=== PATIENT | female | born 1950 | race Caucasian/White ===

== ENCOUNTER → 2018-07-06 | Outpatient (CLI) | payer MEDICARE ==
[~2018-07-06] MED LIST: ACTOS; ALBU90OI INH; ATEN50; AZIT250 PO; BENADRYL25 MG; DEXA.5; DIAZ2 PO; DULO60 PO; ESCI10; FAMO20 PO; GABA100; GLIP5; HYDACE5 PO; IBUP800; INSU100I6 SC; INSULANPEN; LEVSOD100 PO; LEVSOD50; LISHYD2012; LORA2; LORA2 PO; MECL25 PO; METF500 PO; METFORMIN; Metformin HCl1000 MG; POTCHL20ER PO; PRAV20; PRED20 PO; PROM25 PO; Pravachol40 MG PO; RXLORA1 PO; ST. JOSEPH ASPI81 MG PO; ZESTORETIC 20-121 EA PO
[2018-07-06 17:16] LABS: Creatinine, Urine Random 71.9 mg/dL (27.00-270.00)
[2018-07-06 17:18] LABS: Microalb/Creat Ratio UR, Rand 11.14 mg/g (0.000-30.000); Microalbumin, Random Urine 8.01 mg/L (0.000-20.000)
== END ==
LOC: LAB 11:30 → LAB SHORT 11:30 → EDSTATUS 06-07 11:15 → LAB FUT 06-07 11:15
PROVIDERS: Nurse Practitioner Family
DX: D64.9 Anemia, unspecified (principal); E11.9 Type 2 diabetes mellitus without complications; E78.1 Pure hyperglyceridemia; E03.9 Hypothyroidism, unspecified; E55.9 Vitamin D deficiency, unspecified
CPT/HCPCS: 82043; 82570

== ENCOUNTER 2018-08-29 20:27 | Emergency (ER) | payer MEDICARE ==
[~2018-08-29] VITALS: Ht 160 cm; Wt 77.1 kg
[~2018-08-29 20:27] MED LIST changes: +Bentyl20 MG PO; +CHOL10002 PO; +GLUCOSAMINE; +LEVSOD112 PO; +LO-DOSE ASPIRIN81 MG PO; +Neurontin 300300 MG PO; +OMEPRAZOLE MAGN20 MG PO; +Requip0.5 MG PO; +Zofran4 MG PO
[2018-08-29 20:59] LABS: BASOPHILS ABSOLUTE AUTO 0.05 K/mm3 (0.00-0.23); BASOPHILS PERCENT AUTO 0 % (0-2); EOSINOPHILS ABSOLUTE AUTO 0.11 K/mm3 (0.00-0.68); EOSINOPHILS PERCENT AUTO 1 % (0-6); Hematocrit 36.7 % (33.0-51.0); IMMATURE GRAN ABSOLUTE AUTO 0.04 K/mm3 (0.00-0.10); IMMATURE GRAN PERCENT AUTO 0 % (0-1); LYMPHOCYTES ABSOLUTE AUTO 0.64 K/mm3 (0.84-5.20); LYMPHOCYTES PERCENT AUTO 6 % (21-46); MONOCYTES ABSOLUTE AUTO 0.66 K/mm3 (0.16-1.47); MONOCYTES PERCENT AUTO 6 % (4-13); Mean Corpuscular HGB 25.6 pg (26.0-34.0); Mean Corpuscular Volume 85 fL (80-100); Mean Platelet Volume 10.3 fL (9.1-12.4); NEUTROPHILS ABSOLUTE AUTO 9.72 K/mm3 (1.96-9.15); NEUTROPHILS PERCENT AUTO 87 % (41-73); Platelet Count 411 K/mm3 (150-400); RDW Coefficient Variation 15.9 % (11.7-14.2); RDW Standard Deviation 49.1 fL (35.1-46.3); White Blood Cell Count 11.22 K/mm3 (4.00-11.30)
[2018-08-29 21:25] LABS: Albumin, Blood 3.1 g/dL (3.4-5.0); Albumin/Globulin Ratio 0.6 (0.8-1.8); Bilirubin, Total 3.7 mg/dL (0.1-1.0); Bun/Creatinine Ratio 11.1 (12.0-20.0); Calcium, Blood 9.3 mg/dL (8.5-10.1); Creatinine, Blood 1.08 mg/dL (0.40-1.00); Globulin, Blood 5.1 g/dL (2.2-4.0); Potassium, Blood 3.6 mmol/L (3.5-5.5); Total Protein, Blood 8.2 g/dL (6.4-8.2)
== END 2018-08-30 00:15 | disposition short-term general hospital (02) ==
LOC: ER 20:27
PROVIDERS: Physician Assistant
DX: K80.50 Calculus of bile duct without cholangitis or cholecystitis without obstruction (principal); Z88.0 Allergy status to penicillin; Z88.2 Allergy status to sulfonamides; Z88.5 Allergy status to narcotic agent; Z79.899 Other long term (current) drug therapy; Z79.82 Long term (current) use of aspirin; Z79.84 Long term (current) use of oral hypoglycemic drugs; E11.9 Type 2 diabetes mellitus without complications; F41.9 Anxiety disorder, unspecified; I10 Essential (primary) hypertension
CPT/HCPCS: 36415; 76705; 80053; 83690; 85025; 96374; 96375; 99285-25; J1170; J2405

== ENCOUNTER → 2018-09-09 | Outpatient (CLI) | payer MEDICARE ==
[2018-09-16 13:35] LABS: Stool Occult Bld Immuno 1 Negative (NEGATIVE)
== END ==
LOC: LAB 19:29 → LAB SHORT 19:29
PROVIDERS: Nurse Practitioner Family
DX: Z12.11 Encounter for screening for malignant neoplasm of colon (principal)
CPT/HCPCS: G0328

== ENCOUNTER → 2020-01-04 | Outpatient (CLI) | payer MEDICARE ==
[2020-01-06 14:37] LABS: Stool Occult Bld Immuno 1 Negative (NEGATIVE)
== END ==
LOC: LAB 13:40 → LAB SHORT 13:40
PROVIDERS: Student in an Organized Health Care Education/Training Program
DX: Z12.11 Encounter for screening for malignant neoplasm of colon (principal)
CPT/HCPCS: G0328

== ENCOUNTER → 2020-12-20 | Outpatient (CLI) | payer MEDICARE, OTHER ==
[~2020-12-20] MED LIST changes: +EUTHYROX125 MCG PO; +GLUCOPHAGE1000 M1 PO; +INSULANPEN SC; +K-Dur20 MEQ PO; +LEVEMIR100 UNIT/1 SC; -LEVSOD112 PO; +MAGCHL64ER PO; +PRAVASTATIN SOD40 MG PO; -Requip0.5 MG PO; +Ropinirole HCl0.5 MG PO
[2020-12-20 17:18] LABS: BASOPHILS ABSOLUTE AUTO 0.01 K/mm3 (0.00-0.23); BASOPHILS PERCENT AUTO 0 % (0-2); EOSINOPHILS ABSOLUTE AUTO 0.01 K/mm3 (0.00-0.68); EOSINOPHILS PERCENT AUTO 0 % (0-6); Hematocrit 38.3 % (33.0-51.0); Hemoglobin 12.4 g/dL (11.5-16.0); IMMATURE GRAN ABSOLUTE AUTO 0.01 K/mm3 (0.00-0.10); IMMATURE GRAN PERCENT AUTO 0 % (0-1); LYMPHOCYTES ABSOLUTE AUTO 0.81 K/mm3 (0.84-5.20); LYMPHOCYTES PERCENT AUTO 13 % (21-46); MONOCYTES ABSOLUTE AUTO 0.48 K/mm3 (0.16-1.47); MONOCYTES PERCENT AUTO 8 % (4-13); Mean Corpuscular HGB 27.3 pg (26.0-34.0); Mean Corpuscular HGB Conc 32.4 g/dL (31.5-36.5); Mean Corpuscular Volume 84 fL (80-100); Mean Platelet Volume 10.9 fL (9.1-12.4); NEUTROPHILS PERCENT AUTO 78 % (41-73); Platelet Count 233 K/mm3 (150-400); RDW Coefficient Variation 16.3 % (11.7-14.2); RDW Standard Deviation 50.2 fL (35.1-46.3); Red Blood Cell Count 4.55 M/mm3 (3.80-5.20); White Blood Cell Count 6.12 K/mm3 (4.00-11.30)
[2020-12-20 17:32] LABS: Albumin, Blood 3.1 g/dL (3.4-5.0); Albumin/Globulin Ratio 0.6 (0.8-1.8); Bilirubin, Total 0.6 mg/dL (0.1-1.0); Bun/Creatinine Ratio 15.2 (12.0-20.0); Creatinine, Blood 1.64 mg/dL (0.40-1.00); Globulin, Blood 5.3 g/dL (2.2-4.0); Potassium, Blood 3.6 mmol/L (3.5-5.5); Total Protein, Blood 8.4 g/dL (6.4-8.2)
== END | disposition home or self-care (01) ==
LOC: LAB 17:12 → LAB SHORT 17:12
PROVIDERS: Chiropractor
DX: R19.7 Diarrhea, unspecified (principal)
CPT/HCPCS: 80053; 85025

== ENCOUNTER → 2020-12-20 | Outpatient (CLI) | payer MEDICARE, OTHER | END | disposition home or self-care (01) | LOC: LAB 16:58 → LAB SHORT 16:58 | DX: R82.79 Other abnormal findings on microbiological examination of urine (principal); R19.7 Diarrhea, unspecified | CPT/HCPCS: 80053; 85025; 87086 ==

== ENCOUNTER 2020-12-22 01:02 | Emergency (ER) | payer MEDICARE, OTHER ==
[~2020-12-22] VITALS: Ht 167.6 cm; Wt 93.0 kg
[~2020-12-22 01:02] MED LIST changes: -EUTHYROX125 MCG PO; -GLUCOPHAGE1000 M1 PO; -INSULANPEN SC; -K-Dur20 MEQ PO; -LEVEMIR100 UNIT/1 SC; -MAGCHL64ER PO; -Neurontin 300300 MG PO; -OMEPRAZOLE MAGN20 MG PO; -PRAVASTATIN SOD40 MG PO; -Ropinirole HCl0.5 MG PO
[2020-12-22 01:25] LABS: Calcium, Ionized (POC) 0.98 mmol/L (1.10-1.46); Chloride (POC) 92 mmol/L (98-108); Glucose (ISTAT POC) 270 mg/dL (70-99); Hemoglobin (POC) 13.6 g/dL (12.0-16.0); Sodium (POC) 130 mmol/L (135-148); Total CO2 (POC) 21 mmol/L (21-32)
[2020-12-22 01:35] LABS: BASOPHILS ABSOLUTE AUTO 0.01 K/mm3 (0.00-0.23); BASOPHILS PERCENT AUTO 0 % (0-2); EOSINOPHILS PERCENT AUTO 0 % (0-6); Hemoglobin 12.2 g/dL (11.5-16.0); IMMATURE GRAN ABSOLUTE AUTO 0.02 K/mm3 (0.00-0.10); IMMATURE GRAN PERCENT AUTO 0 % (0-1); LYMPHOCYTES ABSOLUTE AUTO 1.12 K/mm3 (0.84-5.20); LYMPHOCYTES PERCENT AUTO 17 % (21-46); MONOCYTES ABSOLUTE AUTO 0.42 K/mm3 (0.16-1.47); MONOCYTES PERCENT AUTO 6 % (4-13); Mean Corpuscular HGB 26.9 pg (26.0-34.0); Mean Corpuscular HGB Conc 32.1 g/dL (31.5-36.5); Mean Corpuscular Volume 84 fL (80-100); Mean Platelet Volume 11.1 fL (9.1-12.4); NEUTROPHILS ABSOLUTE AUTO 5.18 K/mm3 (1.96-9.15); NEUTROPHILS PERCENT AUTO 77 % (41-73); Platelet Count 238 K/mm3 (150-400); RDW Coefficient Variation 15.8 % (11.7-14.2); RDW Standard Deviation 48.3 fL (35.1-46.3); Red Blood Cell Count 4.53 M/mm3 (3.80-5.20); White Blood Cell Count 6.75 K/mm3 (4.00-11.30)
[2020-12-22 01:47] LABS: Albumin, Blood 2.8 g/dL (3.4-5.0); Albumin/Globulin Ratio 0.6 (0.8-1.8); Bilirubin, Total 0.7 mg/dL (0.1-1.0); Bun/Creatinine Ratio 15.2 (12.0-20.0); Calcium, Blood 8.2 mg/dL (8.5-10.1); Creatinine, Blood 1.05 mg/dL (0.40-1.00); Globulin, Blood 4.9 g/dL (2.2-4.0); Total Protein, Blood 7.7 g/dL (6.4-8.2)
[2020-12-22 01:58] LABS: Magnesium, Blood 0.9 mg/dL (1.6-2.4)
[2020-12-22] MEDS ORDERED: MAGCHL64ER PO (03:04)
[2020-12-22] MEDS ORDERED: K-Dur20 MEQ PO (03:04)
== END 2020-12-22 03:25 | disposition home or self-care (01) ==
LOC: ER 01:02
PROVIDERS: Emergency Medicine
DX: R53.1 Weakness (principal); E87.6 Hypokalemia; E83.42 Hypomagnesemia; E11.9 Type 2 diabetes mellitus without complications; I10 Essential (primary) hypertension; E86.0 Dehydration; U07.1 COVID-19; Z88.0 Allergy status to penicillin; Z88.2 Allergy status to sulfonamides; Z88.5 Allergy status to narcotic agent; Z79.82 Long term (current) use of aspirin; Z79.84 Long term (current) use of oral hypoglycemic drugs; Z79.899 Other long term (current) drug therapy; Z79.890 Hormone replacement therapy
CPT/HCPCS: 80047; 80053; 83690; 83735; 85014; 85025; 93005; 93010; 96365; 99284-25; A9270; J3475

== ENCOUNTER 2020-12-23 14:48 | Emergency (ER) | payer MEDICARE, OTHER ==
[~2020-12-23 14:48] MED LIST changes: +K-Dur20 MEQ PO; +MAGCHL64ER PO
== END 2020-12-23 15:48 | disposition left against medical advice (07) ==
LOC: ER 14:48
DX: Z53.21 Procedure and treatment not carried out due to patient leaving prior to being seen by health care provider (principal)

== ENCOUNTER 2020-12-25 14:26 | Inpatient (IN) | payer MEDICARE ==
[~2020-12-25] VITALS: Ht 160 cm; Wt 77.1 kg
[2020-12-25 15:08] LABS: BASOPHILS ABSOLUTE AUTO 0.02 K/mm3 (0.00-0.23); BASOPHILS PERCENT AUTO 0 % (0-2); EOSINOPHILS ABSOLUTE AUTO 0.01 K/mm3 (0.00-0.68); EOSINOPHILS PERCENT AUTO 0 % (0-6); Hemoglobin 12.5 g/dL (11.5-16.0); Mean Corpuscular HGB 26.9 pg (26.0-34.0); Mean Corpuscular HGB Conc 32.1 g/dL (31.5-36.5); Mean Corpuscular Volume 84 fL (80-100); Mean Platelet Volume 10.6 fL (9.1-12.4); Platelet Count 327 K/mm3 (150-400); RDW Coefficient Variation 15.8 % (11.7-14.2); RDW Standard Deviation 48.3 fL (35.1-46.3); Red Blood Cell Count 4.65 M/mm3 (3.80-5.20); White Blood Cell Count 7.18 K/mm3 (4.00-11.30)
[2020-12-25 15:15] LABS: IMMATURE GRAN ABSOLUTE AUTO 0.03 K/mm3 (0.00-0.10); IMMATURE GRAN PERCENT AUTO 0 % (0-1); LYMPHOCYTES ABSOLUTE AUTO 1.28 K/mm3 (0.84-5.20); LYMPHOCYTES PERCENT AUTO 18 % (21-46); MONOCYTES ABSOLUTE AUTO 0.28 K/mm3 (0.16-1.47); MONOCYTES PERCENT AUTO 4 % (4-13); NEUTROPHILS ABSOLUTE AUTO 5.56 K/mm3 (1.96-9.15); NEUTROPHILS PERCENT AUTO 78 % (41-73)
[2020-12-25 15:31] LABS: Troponin I 0.022 ng/mL (0.000-0.040)
[2020-12-25 15:44] LABS: Albumin, Blood 2.4 g/dL (3.4-5.0); Albumin/Globulin Ratio 0.4 (0.8-1.8); Bilirubin, Total 0.8 mg/dL (0.1-1.0); Bun/Creatinine Ratio 15.9 (12.0-20.0); Calcium, Blood 8.9 mg/dL (8.5-10.1); Creatinine, Blood 1.07 mg/dL (0.40-1.00); Globulin, Blood 5.4 g/dL (2.2-4.0); Potassium, Blood 2.7 mmol/L (3.5-5.5); Total Protein, Blood 7.8 g/dL (6.4-8.2)
[2020-12-25] MEDS ORDERED: DULO60 PO (15:59)
[2020-12-25] MEDS ORDERED: Neurontin 300300 MG PO (16:00)
[2020-12-25] MEDS ORDERED: LEVEMIR100 UNIT/1 SC (16:00)
[2020-12-25] MEDS ORDERED: PRAVASTATIN SOD40 MG PO (16:01)
[2020-12-25] MEDS ORDERED: Ropinirole HCl0.5 MG PO (16:01)
[2020-12-25] MEDS ORDERED: OMEPRAZOLE MAGN20 MG PO (16:02)
[2020-12-25] MEDS ORDERED: ZESTORETIC 20-121 EA PO (16:02)
[2020-12-25] MEDS ORDERED: GLUCOPHAGE1000 M1 PO (16:03)
[2020-12-25] MEDS ORDERED: EUTHYROX125 MCG PO (16:03)
--- NOTE | 2020-12-26 02:59 | NUR ---
PT RESTING QUIETLY. CALL LT IN REACH.
--- NOTE | 2020-12-26 03:49 | NUR ---
SHIFT SUMMARY: ER ADMIT AT SHIFT CHANGE LAST NIGHT. ALERT AND ORIENTED. ON 3L VIA NC. DENIES PAIN AND NAUSEA. CURRENTLY ON 3L VIA NC. STOOL SAMPLE FOR C-DIFF SENT TO LAB, PENDING RESULTS. NO COMPLAINTS. RESTED WELL. WILL CONTINUE TO PROVIDE CARE UNTIL SHIFT REPORT.
[2020-12-26 06:10] LABS: Hematocrit 37.9 % (33.0-51.0); Hemoglobin 11.9 g/dL (11.5-16.0); Mean Corpuscular HGB 26.4 pg (26.0-34.0); Mean Corpuscular HGB Conc 31.4 g/dL (31.5-36.5); Mean Corpuscular Volume 84 fL (80-100); Mean Platelet Volume 10.9 fL (9.1-12.4); Platelet Count 334 K/mm3 (150-400); RDW Standard Deviation 49.4 fL (35.1-46.3); Red Blood Cell Count 4.51 M/mm3 (3.80-5.20); White Blood Cell Count 3.94 K/mm3 (4.00-11.30)
[2020-12-26 06:36] LABS: Bun/Creatinine Ratio 21.5 (12.0-20.0); Calcium, Blood 8.4 mg/dL (8.5-10.1); Creatinine, Blood 0.98 mg/dL (0.40-1.00); Magnesium, Blood 1.3 mg/dL (1.6-2.4); Potassium, Blood 3.1 mmol/L (3.5-5.5); Thyroxine (T4) 12.3 ug/dL (4.8-13.9)
[2020-12-26 06:41] LABS: Adenovirus F 40/41 Not Detected (NOT DETECT); Astrovirus Not Detected (NOT DETECT); Campylobacter Sp Not Detected (NOT DETECT); Cryptosporidium Not Detected (NOT DETECT); Cyclospora Cayetanensis Not Detected (NOT DETECT); E. Coli O157 Not Detected (NOT DETECT); Entamoeba Histolytica Not Detected (NOT DETECT); Enteroaggregative E. coli-EAEC Not Detected (NOT DETECT); Enteropathogenic E. coli-EPEC Not Detected (NOT DETECT); Enterotoxigenic E. coli-ETEC Not Detected (NOT DETECT); Giardia Lamblia Not Detected (NOT DETECT); Norovirus GI/GII Not Detected (NOT DETECT); Plesiomonas Shigelloides Not Detected (NOT DETECT); Rotavirus A Not Detected (NOT DETECT); Salmonella Sp Not Detected (NOT DETECT); Sapovirus Not Detected (NOT DETECT); Shiga Toxin-prod E. coli-STEC Not Detected (NOT DETECT); Shigella/Enteroin E. coli-EIEC Not Detected (NOT DETECT); Vibrio Cholerae Not Detected (NOT DETECT); Vibrio Sp Not Detected (NOT DETECT); Yersinia Enterocolitica Not Detected (NOT DETECT)
--- NOTE | 2020-12-26 18:45 | NUR ---
SHIFT SUMMARY PT AXO PLEASANT AND COOPERATIVE WITH CARE. UP WITH 1 ASSIST AND PREFERS WOMAN NURSE AND EXTRACTOR FILLER FOR MODESTY. CBG ELEVATED, SEE RESULTS AND MEDICATED PER EMAR. VSS THOUGH AT 1814 PT WAS 85 ON 3L. THIS NURSE IN AND INCREASED O2 TO 5L. PT SATS THEN WERE AT 89. 88% ON 6L AT THIS TIME. THIS NURSE CALLED RESPIRATORY CARE FOR FURTHER INTERVENTION. AWAITING ARRIVAL AT THIS TIME. BED IN LOW POSITION, CALL LIGHT WITHIN REACH. IV PATENT AND SALINE LOCKED. NO DIARRHEA THIS SHIFT. ONE VERY SMALL BM THIS SHIFT, BLACK IN COLOR THOUGH PT STATES THAT SHE TAKES CHARCOAL AT HOME.
--- NOTE | 2020-12-27 01:43 | NUR ---
REPORT GIVEN TO KHURRAM HOOVER. PATIENT ALERT AND ORIENTED, ABLE TO MAKE NEEDS KNOWN. SHE WAS ON 9L VIA NC AT START OF SHIFT. PATIENT PLACED ON CONT BIOX AND SHE HAS BEEN SATING IN THE 97-99% WHILE SLEEPING, PATIENTS SUPPLEMENTAL O2 DECREASED TO 8L. MEDICATED WITH APAP FOR COMPLAINTS OF HEAD ACHE, PAIN RESOLVED. BED LOW AND LOCKED, CALL LIGHT WITHIN REACH.
--- NOTE | 2020-12-27 02:00 | NUR ---
RECEIVED REPORT FROM KIKO DAILEY. WILL CONTINUE TO PROVIDE CARE THE REST OF SHIFT. CALL LT IN REACH.
--- NOTE | 2020-12-27 04:22 | NUR ---
SHIFT SUMMARY: PT ON 8L VIA WI, SATS 94-97% PER CONT OXIMETRY. 1PA. ABLE TO STATE NEEDS APPROPRIATELY. USES CALL LT. MEDICATED EARLIER IN SHIFT FOR A HEADACHE. PT RESTED WELL. STOOL SAMPLE WAS C-DIFF NEG. DIARRHEA HAS SLOWED DOWN. NO ACUTE CHANGES. WILL CONTINUE TO PROVIDE CARE UNTIL SHIFT REPORT.
[2020-12-27 05:50] LABS: Hematocrit 35.4 % (33.0-51.0); Hemoglobin 11.3 g/dL (11.5-16.0); Mean Corpuscular HGB 26.9 pg (26.0-34.0); Mean Corpuscular HGB Conc 31.9 g/dL (31.5-36.5); Mean Corpuscular Volume 84 fL (80-100); Mean Platelet Volume 10.5 fL (9.1-12.4); Platelet Count 372 K/mm3 (150-400); RDW Standard Deviation 49.3 fL (35.1-46.3); White Blood Cell Count 7.06 K/mm3 (4.00-11.30)
[2020-12-27 06:15] LABS: Bun/Creatinine Ratio 28.6 (12.0-20.0); Calcium, Blood 8.2 mg/dL (8.5-10.1); Creatinine, Blood 0.94 mg/dL (0.40-1.00); Magnesium, Blood 1.5 mg/dL (1.6-2.4); Potassium, Blood 3.9 mmol/L (3.5-5.5)
--- NOTE | 2020-12-27 17:39 | NUR ---
PT DESATURATES WITH AMBULATION, RECOVERS WELL UNTIL THIS EVENING WHEN HER O2 NEEDS INCREASED WITH AMBULATION FROM BED TO BSC, PT IS NOW ON 12L HIGH FLOW CANNULA TO MAINTAIN SPO2 >88%. PT A/O X3, ANSWERS QUESTIONS SLOWLY, BUT CORRECTLY. PT WITH FLAT AFFECT, DENIES ANY NEEDS T/O THE DAY. DOES HAVE ANXIETY WHEN SHE HAS SPELLS OF COUGHING.
--- NOTE | 2020-12-28 05:13 | NUR ---
SHIFT SUMMARY- PT. A&O, COOPERATIVE WITH CARE. AT START OF SHIFT PT. ON 12L HIGH FLOW NC WITH SATS IN THE LOW 80'S. INCREASED TO 15L, SATS AT 85-87%. PT. PLACED ON 40L AIRVO. REMAINED ON AIRVO T/O THE NIGHT, SATS 95-97%, TOLERATING WELL. NO COMPLAINTS OF PAIN OR DISCOMFORT DURING THE NIGHT. RESTED QUIETLY IN BED, NO APPARENT DISTRESS NOTED. 1PA TO BSC, VSS. CALL LIGHT WITHIN REACH AND SIDE RAILS UPX2. WILL CONT TO MONITOR.
[2020-12-28 06:29] LABS: Hematocrit 35.6 % (33.0-51.0); Hemoglobin 11.2 g/dL (11.5-16.0); Mean Corpuscular HGB 26.9 pg (26.0-34.0); Mean Corpuscular HGB Conc 31.5 g/dL (31.5-36.5); Mean Corpuscular Volume 85 fL (80-100); Mean Platelet Volume 10.8 fL (9.1-12.4); Platelet Count 385 K/mm3 (150-400); RDW Coefficient Variation 15.9 % (11.7-14.2); RDW Standard Deviation 49.7 fL (35.1-46.3); Red Blood Cell Count 4.17 M/mm3 (3.80-5.20); White Blood Cell Count 9.01 K/mm3 (4.00-11.30)
[2020-12-28 06:48] LABS: Bun/Creatinine Ratio 29.4 (12.0-20.0); Calcium, Blood 8.3 mg/dL (8.5-10.1); Creatinine, Blood 0.95 mg/dL (0.40-1.00); Magnesium, Blood 1.6 mg/dL (1.6-2.4); Potassium, Blood 3.7 mmol/L (3.5-5.5)
--- NOTE | 2020-12-28 17:51 | NUR ---
SHIFT SUMMARY PT IS AOX3 BUT SLOW TO RESPOND AT TIMES. PT DENIES PAIN, N/V, SOB. PT IS ON 50 L AIRVO WITH SATS 89-90%. PT IS ONE ASSIST TO BCC. PT APPETITE IS MODERATE. NO PROCEDURES DONE THIS SHIFT. PT HAS NOT HAD VISITORS PER COVID PROTOCOL. ENHANCED ISOLATION PRECAUTIONS MAINTAINED T/O SHIFT. PLAN IS TO MONITOR STATUS AND HOPEFULLY TITRATE O2 DOWN. PT IS IN BED, CALL LIGHT IN REACH, BED IN LOW POSITION.
--- NOTE | 2020-12-29 17:55 | NUR ---
PT IS A/OX3, COOPERATIVE, DUSKY IN COLOR AND ANXIOUS AT TIMES. ON AIRVO T/O THE DAY . O2 SAT'S DROP WITH ANY ACTIVITY. THE PT HAS A POOR APPETITE, ENCOURAGED TO EAT T/O THE DAY. PT DENIES ANY PAIN, HAS OCCASIONAL COUGH, NASAL CONGESTION WITH SPOTTY BLOOD SEEN. CALL LIGHT IN REACH, WILL CONTINUE TO MONITOR AND ASSESS FOR CHANGES
--- NOTE | 2020-12-29 20:45 | NUR ---
PT IS ALERT AND ORIENTED, IN HIGH SEMI FOWLERS POSITION IN BED. PT DENIES ANY HEADACHE, CHEST PAIN, NAUSEA, OR NUMBNESS AND TINGLING. PT REPORTS HER BREATHING/SOB, "BETTER." PT DENIES ANY PAIN OR DISCOMFORT. PT DENIES ANY REQUESTS AT THIS TIME. FLUIDS AT BEDSIDE. BED IN LOW POSITION. CALL LIGHT WITHIN REACH.
[2020-12-30 06:20] LABS: Anion Gap 8 mmol/L (6-16); Blood Urea Nitrogen 27 mg/dL (8-24); Bun/Creatinine Ratio 32.7 (12.0-20.0); CO2, Blood 26 mmol/L (21-32); Calcium, Blood 8.4 mg/dL (8.5-10.1); Chloride, Blood 102 mmol/L (98-108); Creatinine, Blood 0.83 mg/dL (0.40-1.00); Glomerular Filtration Rate >60 (60-); Glucose, Blood 256 mg/dL (70-99); Potassium, Blood 3.5 mmol/L (3.5-5.5); Sodium, Blood 136 mmol/L (136-145)
--- NOTE | 2020-12-30 06:46 | NUR ---
SHIFT SUMMARY - NO ACUTE CHANGES THROUGHOUT THE NIGHT. PT CURRENT AIRVO SETTINGS ARE 50L/70% - CONTINUOUS BIOX ON - SATS HAVE BEEN WNL, EXCEPT WHEN PT HAS DISPLACED THE OXYGEN OUT OF HER NOSE, AND WITH ACTIVITY TO BSC. PT DID DESAT DOWN TO LOW 80'S WITH BSC USE, BUT RECOVERS ONCE BACK INTO BED, AND PT REMINDED TO TAKE DEEP BREATHS THROUGH HER NOSE. PT SLEPT FOR SEVERAL HOURS TONIGHT. CALL LIGHT WITHIN REACH. BED IN LOW POSITION. FLUIDS AT BEDSIDE.
[2020-12-30 08:54] LABS: C-REACTIVE PROTEIN, EXT RANGE 5.99 mg/dL (0.000-0.300)
--- NOTE | 2020-12-30 16:32 | NUR ---
PT IS A/OX3, COOPERATIVE. THE PT IS HIGHLY ANXIOUS MORE TODAY COMPARED TO YESTERDAY. THE PT TAKES OFF HER OXYGEN AT TIMES SAT'S IMMEDIATLY DROP INTO THE 70"S, PT BECOMES CONFUSED AND NEEDS HELP REAPPLYING HER O2, THE PT IS ON AIRVO 50L/70%. THE PT WAS GIVEN FLONASE TODAY FOR NASAL CONGESTION. THE PT WAS GIVEN VISTERIL FOR ANXIETY WHICH SEEMED TO HELP SOME. THE PT WAS UP IN THE CHAIR AT THE BEDSIDE FOR A SHORT TIME TODAY. THE PT HAS A POOR APPETITE, PT WAS ENCOURAGED TO EAT HER MEALS. CALL LIGHT IN REACH. WILL CONTINUE TO MONIOTR AND ASSESS FOR CHANGES
[2020-12-31 05:28] LABS: BASOPHILS ABSOLUTE AUTO 0.01 K/mm3 (0.00-0.23); BASOPHILS PERCENT AUTO 0 % (0-2); EOSINOPHILS PERCENT AUTO 2 % (0-6); Hematocrit 35.3 % (33.0-51.0); Hemoglobin 11.3 g/dL (11.5-16.0); IMMATURE GRAN ABSOLUTE AUTO 0.07 K/mm3 (0.00-0.10); IMMATURE GRAN PERCENT AUTO 1 % (0-1); LYMPHOCYTES ABSOLUTE AUTO 1.32 K/mm3 (0.84-5.20); LYMPHOCYTES PERCENT AUTO 12 % (21-46); MONOCYTES ABSOLUTE AUTO 0.41 K/mm3 (0.16-1.47); MONOCYTES PERCENT AUTO 4 % (4-13); Mean Corpuscular HGB 26.6 pg (26.0-34.0); Mean Corpuscular Volume 83 fL (80-100); Mean Platelet Volume 10.5 fL (9.1-12.4); NEUTROPHILS ABSOLUTE AUTO 8.95 K/mm3 (1.96-9.15); NEUTROPHILS PERCENT AUTO 82 % (41-73); Platelet Count 436 K/mm3 (150-400); RDW Standard Deviation 48.3 fL (35.1-46.3); Red Blood Cell Count 4.25 M/mm3 (3.80-5.20); White Blood Cell Count 10.96 K/mm3 (4.00-11.30)
[2020-12-31 05:53] LABS: Alanine Aminotransfer (ALT/SGP 17 U/L (12-78); Albumin, Blood 2.3 g/dL (3.4-5.0); Albumin/Globulin Ratio 0.5 (0.8-1.8); Alk Phos 83 U/L (50-136); Anion Gap 10 mmol/L (6-16); Aspartate Aminotrans (AST/SGOT 43 U/L (12-37); Bilirubin, Total 0.9 mg/dL (0.1-1.0); Blood Urea Nitrogen 27 mg/dL (8-24); Bun/Creatinine Ratio 31.1 (12.0-20.0); CO2, Blood 21 mmol/L (21-32); Calcium, Blood 9.1 mg/dL (8.5-10.1); Chloride, Blood 107 mmol/L (98-108); Creatinine, Blood 0.87 mg/dL (0.40-1.00); Globulin, Blood 4.7 g/dL (2.2-4.0); Glomerular Filtration Rate >60 (60-); Glucose, Blood 89 mg/dL (70-99); Potassium, Blood 3.9 mmol/L (3.5-5.5); Sodium, Blood 138 mmol/L (136-145)
--- NOTE | 2020-12-31 06:12 | NUR ---
SHIFT SUMMARY AOX1-SELF. CONFUSED. UNABLE TO ANSWER QUESTIONS APPROPRIATELY OR FOLLOW MANY DIRECTIONS WELL. REPETITIVE & STUTTERS c SPEECH & HAS NONSENSICAL RESPONSES. STATES "HURRY, HURRY, HURRY" "YES, YES, YES" TO QUESTIONS. CAN ANSWER YES/NO QUESTIONS APPROPRIATE. OCCASIONAL CLEAR & APPROPRIATE SPEECH "I WANT DRINK". HIGHLY ANXIOUS THIS AM, MEDICATED c VISTERIL PER ORDERS. ON AIRVO, RT INCREASED O2 60L & 88%. PT TAKES AIRVO CANNULA OFF & DESATS TO 60%, WONT STAY IN BED, TRYING TO FREQUENTLY GET OOB, HIGH FALL RISK-INFORMED DR OLIVO & HE ORDERED WRIST RESTRAINTS FOR SAFETY. LUNGS DIM c CRACKLES. DRY NON PRODUCTIVE COUGH. BP ELEVATED THIS AM, HOWEVER PT VERY ANXIOUS-WILL RECHECK. CALL LIGHT & BED ALARM IN PLACE.
--- NOTE | 2020-12-31 11:10 | NUR ---
ANXIOUSNESS/AGITATION PT CONTINUES TO PULL AIRVO OFF WHILE IN WRIST RESTRAINTS AND ZYPREXA GIVEN. PT IS VERY ANXIOUS AND CONFUSED. THIS RN UNABLE TO REDIRECT. PT PLACED IN KEN VEST TO ASSIST WITH NOT SLIDING DOWN IN BED, CAUSING HER AIRVO TO BE PULLED OFF. ORDERS GIVEN BY DR. MCKEON. WILL CONTINUE TO MONITOR FOR SAFETY. CALL LIGHT IN REACH AND BED ALARM ON FOR SAFETY.
--- NOTE | 2020-12-31 13:40 | NUR ---
ROOM TRANSFER PT TRANSFERRED TO ROOM 348 VIA BED SO PT COULD BE ON CAMERA. PT CONTINUES TO PULL AIRVO OFF WITH KEN VEST AND WRIST RESTRAINTS. PT'S OXYGEN LEVEL DROPS LOW 65% WHEN NOT ON AIRVO. PT WILL BE ON CAMERA TO HELP KEEP PT FROM GETTING AIRVO OFF. REPORT GIVEN TO KIKO ELIAS.
--- NOTE | 2020-12-31 18:26 | NUR ---
PT TRANSFERRED FROM FLOOR. SHE CAME WITH PRONOUNCED CONFUSION BUT IS SLOWING CLEARING. SHE KNOWS WHERE SHE LIVES AND WHERE SHE IS AT NOW. SHE HAS A DIFFICULT TIME WITH HER AIR VO CANULA AND OFTEN NEEDS TO BE REMINDED TO NOT PULL AT IT. SHE IS STILL CONFUSED AND AT RISK FOR PULLING ON LINES BUT IS SLOWLY IMPROVING.
[2021-01-01 05:40] LABS: BASOPHILS PERCENT AUTO 0 % (0-2); EOSINOPHILS PERCENT AUTO 0 % (0-6); Hematocrit 32.9 % (33.0-51.0); Hemoglobin 10.3 g/dL (11.5-16.0); IMMATURE GRAN ABSOLUTE AUTO 0.03 K/mm3 (0.00-0.10); IMMATURE GRAN PERCENT AUTO 1 % (0-1); LYMPHOCYTES ABSOLUTE AUTO 0.56 K/mm3 (0.84-5.20); LYMPHOCYTES PERCENT AUTO 12 % (21-46); MONOCYTES PERCENT AUTO 4 % (4-13); Mean Corpuscular HGB 26.4 pg (26.0-34.0); Mean Corpuscular HGB Conc 31.3 g/dL (31.5-36.5); Mean Corpuscular Volume 84 fL (80-100); Mean Platelet Volume 10.8 fL (9.1-12.4); NEUTROPHILS ABSOLUTE AUTO 3.94 K/mm3 (1.96-9.15); NEUTROPHILS PERCENT AUTO 83 % (41-73); Platelet Count 379 K/mm3 (150-400); RDW Coefficient Variation 16.3 % (11.7-14.2); RDW Standard Deviation 49.8 fL (35.1-46.3); White Blood Cell Count 4.73 K/mm3 (4.00-11.30)
--- NOTE | 2021-01-01 05:54 | NUR ---
PT transferred from PCU on airvo for resp support for covid 19 pneumonia. PT on 55l airvo with slight wean from 73 to 70 per RT. Bioxx intact, sats greater than 90%. Flat affect, slept most of shift. Wrist restraints off without attempts to remove medical equipment. took water only with setup & cues declined HS snack.
[2021-01-01 05:56] LABS: Anion Gap 9 mmol/L (6-16); Blood Urea Nitrogen 30 mg/dL (8-24); CO2, Blood 24 mmol/L (21-32); Calcium, Blood 8.7 mg/dL (8.5-10.1); Chloride, Blood 106 mmol/L (98-108); Creatinine, Blood 0.88 mg/dL (0.40-1.00); Glomerular Filtration Rate >60 (60-); Glucose, Blood 324 mg/dL (70-99); Potassium, Blood 4.2 mmol/L (3.5-5.5); Sodium, Blood 139 mmol/L (136-145)
--- NOTE | 2021-01-02 03:53 | NUR ---
SHIFT SUMMARY A/O 2-3, FORGETFUL AND IMPULSIVE AT TIMES. KEN IN PLACE FOR SAFETY. BEDREST WITH USE OF BEDPAN. CURRENTLY ON AIRVO 55L 60% FIO2. VSS, NO ACUTE CHANGES AT THIS TIME. BED IN LOWEST POSITION WITH CALL LIGHT IN REACH. WILL CONTINUE TO MONITOR AND REPORT TO ONCOMING RN.
--- NOTE | 2021-01-02 12:50 | NUR ---
BLOOD GLUCOSE [address] STAHL OF ABOVE FINDINGS. T.O. TO CHANGE MED CS TO HIGH CS AND ADMINISTER FIRST DOSE OF HIGH CS NOW. ORDER UPDATED.
--- NOTE | 2021-01-02 16:54 | NUR ---
Shift Summary A/Ox3, pleasant and cooperative with care. Restraints have been d/c'd this shift d/t improved mentation. Follows directions well. Assist with proning and side lying positions. Currently on AirVo 55L 60% FiO2. Had to increase oxygen supplementation today, but patient now back to same as start of shift. C/O weakness. Incontinent/continent. Calls appropriately for needs. Appetite is good. Blood sugars have been high, Dr. Pina is aware. Sats maintaining > 90% with current oxygenation. Nonproductive dry cough.
[2021-01-03 04:54] LABS: BASOPHILS ABSOLUTE AUTO 0.01 K/mm3 (0.00-0.23); BASOPHILS PERCENT AUTO 0 % (0-2); EOSINOPHILS ABSOLUTE AUTO 0.02 K/mm3 (0.00-0.68); EOSINOPHILS PERCENT AUTO 0 % (0-6); Hematocrit 35.8 % (33.0-51.0); Hemoglobin 11.1 g/dL (11.5-16.0); IMMATURE GRAN ABSOLUTE AUTO 0.02 K/mm3 (0.00-0.10); IMMATURE GRAN PERCENT AUTO 0 % (0-1); LYMPHOCYTES ABSOLUTE AUTO 0.75 K/mm3 (0.84-5.20); LYMPHOCYTES PERCENT AUTO 9 % (21-46); MONOCYTES PERCENT AUTO 3 % (4-13); Mean Corpuscular HGB 26.4 pg (26.0-34.0); Mean Corpuscular Volume 85 fL (80-100); Mean Platelet Volume 10.4 fL (9.1-12.4); NEUTROPHILS ABSOLUTE AUTO 7.71 K/mm3 (1.96-9.15); NEUTROPHILS PERCENT AUTO 88 % (41-73); Platelet Count 427 K/mm3 (150-400); RDW Coefficient Variation 16.1 % (11.7-14.2); RDW Standard Deviation 50.6 fL (35.1-46.3); White Blood Cell Count 8.81 K/mm3 (4.00-11.30)
[2021-01-03 05:08] LABS: International Normalized Ratio 1.04; Prothrombin Time Results 11.2 Sec (9.7-11.5)
--- NOTE | 2021-01-03 05:13 | NUR ---
SHIFT SUMMARY A/OX3, PLEASANT AND COOPERATIVE WITH CARE. CALLS APPROPRIATELY. CURRENTLY ON AIRVO 55L WITH FIO2 OF 62% LUNGS DIM T/O. CONT. BIOX IN PLACE VIA BLUETOOTH WITH SATS GREATER THAN 92. DENIES PAIN, VSS NO ACUTE CHANGES AT THIS TIME. BED IN LOWEST POSITION WITH CALL LIGHT IN REACH. WILL CONTINUE TO MONITOR AND REPORT TO ONCOMING RN.
[2021-01-03 05:44] LABS: C-REACTIVE PROTEIN, EXT RANGE 7.53 mg/dL (0.000-0.300); Magnesium, Blood 1.8 mg/dL (1.6-2.4)
[2021-01-03 05:45] LABS: Albumin, Blood 2.1 g/dL (3.4-5.0); Albumin/Globulin Ratio 0.4 (0.8-1.8); Bilirubin, Total 0.7 mg/dL (0.1-1.0); Bun/Creatinine Ratio 35.9 (12.0-20.0); Calcium, Blood 9.1 mg/dL (8.5-10.1); Creatinine, Blood 1.03 mg/dL (0.40-1.00); Globulin, Blood 4.8 g/dL (2.2-4.0); Potassium, Blood 4.5 mmol/L (3.5-5.5); Total Protein, Blood 6.9 g/dL (6.4-8.2)
--- NOTE | 2021-01-03 14:26 | NUR ---
TESSALON AND EYE DROPS RECEIVED V.O. FROM DR. STAHL D/T PATIENT C/O COUGH AND DRY EYES. TREAT WITH TESSALON FRANCISCO 200 TID AND ARTIFICIAL TEARS 1-2 DROPS QID.
--- NOTE | 2021-01-03 18:17 | NUR ---
Shift Summary AOx3, continues with nonproductive cough. Meds ordered. Airvo increased to 55L and 85% FiO2 with sats between 89-94%. Cooperative with turning onto sides. Patient desaturated while sitting in chair having lunch, dropped to mid 50's and was difficult to keep up. Notified Dr. Pina and RT Sylvia. Assisted patient back to bed in side lying position, increased O2 from 60% FiO2 to 90%. Patient maintained sats above 95% after all interventions so titrated down to 85%. Pleasant. Appetite is good. C/O dry eyes, med also ordered.
--- NOTE | 2021-01-04 04:17 | NUR ---
SHIFT SUMMARY PATIENT HAD NO ACUTE CHANGES OBSERVED. AXOX 3 AND ONE ASSIST TO CHAIR. TAKES MEDICATION WHOLE WITH WATER. CBG 297. PIV REMAINS INTACT. ON AIRVO 55L STATING 98%. VSS/AFEBRILE. REPORTED GIRALDO AND TYLENOL 500 MG GIVEN. VISTARIL 25 MG GIVEN FOR ANXIETY. DROPLET PRECAUTIONS COVID-19. CALL LIGHT IN REACH. BED IN LOWEST POSITION. WILL CONTINUE TO MONITOR UNTIL DAY SHIFT NURSE ASSUMES CARE.
[2021-01-04 06:04] LABS: BASOPHILS ABSOLUTE AUTO 0.02 K/mm3 (0.00-0.23); BASOPHILS PERCENT AUTO 0 % (0-2); EOSINOPHILS ABSOLUTE AUTO 0.02 K/mm3 (0.00-0.68); EOSINOPHILS PERCENT AUTO 0 % (0-6); Hematocrit 34.7 % (33.0-51.0); Hemoglobin 10.9 g/dL (11.5-16.0); IMMATURE GRAN ABSOLUTE AUTO 0.03 K/mm3 (0.00-0.10); IMMATURE GRAN PERCENT AUTO 0 % (0-1); LYMPHOCYTES ABSOLUTE AUTO 0.86 K/mm3 (0.84-5.20); LYMPHOCYTES PERCENT AUTO 11 % (21-46); MONOCYTES ABSOLUTE AUTO 0.41 K/mm3 (0.16-1.47); MONOCYTES PERCENT AUTO 5 % (4-13); Mean Corpuscular HGB 26.6 pg (26.0-34.0); Mean Corpuscular HGB Conc 31.4 g/dL (31.5-36.5); Mean Corpuscular Volume 85 fL (80-100); Mean Platelet Volume 10.6 fL (9.1-12.4); NEUTROPHILS ABSOLUTE AUTO 6.42 K/mm3 (1.96-9.15); NEUTROPHILS PERCENT AUTO 83 % (41-73); Platelet Count 375 K/mm3 (150-400); RDW Coefficient Variation 15.9 % (11.7-14.2); RDW Standard Deviation 49.5 fL (35.1-46.3); White Blood Cell Count 7.76 K/mm3 (4.00-11.30)
[2021-01-04 06:17] LABS: International Normalized Ratio 1.05; Prothrombin Time Results 11.3 Sec (9.7-11.5)
[2021-01-04 06:37] LABS: Bun/Creatinine Ratio 35.1 (12.0-20.0); C-REACTIVE PROTEIN, EXT RANGE 5.93 mg/dL (0.000-0.300); Calcium, Blood 8.4 mg/dL (8.5-10.1); Magnesium, Blood 1.6 mg/dL (1.6-2.4); Potassium, Blood 4.6 mmol/L (3.5-5.5)
--- NOTE | 2021-01-04 20:01 | NUR ---
A+O, but easily confused and sob, air vo, medicated as prescribed, 02 level stayed above 90 majority of shift, bsr shared with noc nurse and pt, call light in reach, saline locked
--- NOTE | 2021-01-05 04:18 | NUR ---
SHIFT SUMMARY PATIENT HAD NO ACUTE CHANGES OBSERVED. AXOX 3 AND ONE ASSIST TO BSC. ON AIRVO 50L. PIV REMAINS INTACT. CBG 281. REPORTED GIRALDO X ONE AND TYLENOL GIVEN PER EMAR. TAKES MEDS WHOLE WITH WATER. DENIES SOB AND N/V. CALL LIGHT IN REACH. BED IN LOWEST POSITION. WILL CONTINUE TO MONITOR UNTIL DAY SHIFT NURSE ASSUMES CARE.
[2021-01-05 06:07] LABS: BASOPHILS ABSOLUTE AUTO 0.02 K/mm3 (0.00-0.23); BASOPHILS PERCENT AUTO 0 % (0-2); EOSINOPHILS ABSOLUTE AUTO 0.02 K/mm3 (0.00-0.68); EOSINOPHILS PERCENT AUTO 0 % (0-6); Hematocrit 38.5 % (33.0-51.0); Hemoglobin 11.8 g/dL (11.5-16.0); IMMATURE GRAN ABSOLUTE AUTO 0.05 K/mm3 (0.00-0.10); IMMATURE GRAN PERCENT AUTO 1 % (0-1); LYMPHOCYTES ABSOLUTE AUTO 0.96 K/mm3 (0.84-5.20); LYMPHOCYTES PERCENT AUTO 9 % (21-46); MONOCYTES ABSOLUTE AUTO 0.51 K/mm3 (0.16-1.47); MONOCYTES PERCENT AUTO 5 % (4-13); Mean Corpuscular HGB 26.7 pg (26.0-34.0); Mean Corpuscular HGB Conc 30.6 g/dL (31.5-36.5); Mean Corpuscular Volume 87 fL (80-100); Mean Platelet Volume 11.1 fL (9.1-12.4); NEUTROPHILS ABSOLUTE AUTO 8.69 K/mm3 (1.96-9.15); NEUTROPHILS PERCENT AUTO 85 % (41-73); Platelet Count 359 K/mm3 (150-400); RDW Coefficient Variation 15.8 % (11.7-14.2); RDW Standard Deviation 50.1 fL (35.1-46.3); Red Blood Cell Count 4.42 M/mm3 (3.80-5.20); White Blood Cell Count 10.25 K/mm3 (4.00-11.30)
[2021-01-05 06:21] LABS: International Normalized Ratio 1.04; Prothrombin Time Results 11.2 Sec (9.7-11.5)
[2021-01-05 06:34] LABS: Anion Gap 6 mmol/L (6-16); Blood Urea Nitrogen 35 mg/dL (8-24); Bun/Creatinine Ratio 39.5 (12.0-20.0); CO2, Blood 25 mmol/L (21-32); Calcium, Blood 9.9 mg/dL (8.5-10.1); Chloride, Blood 106 mmol/L (98-108); Creatinine, Blood 0.89 mg/dL (0.40-1.00); Glomerular Filtration Rate >60 (60-); Glucose, Blood 235 mg/dL (70-99); Potassium, Blood 4.7 mmol/L (3.5-5.5); Sodium, Blood 137 mmol/L (136-145)
--- NOTE | 2021-01-06 04:13 | NUR ---
BP 162/54 AND IV APRESOLINE 10 MG GIVEN FOR SBP >150. BP 143/47 ON RECHECK. CALL LIGHT IN REACH.
--- NOTE | 2021-01-06 04:17 | NUR ---
SHIFT SUMMARY PATIENT HYPERTENSIVE THIS SHIFT.IV APRESOLINE 10 MG GIVEN PER EMAR (SEE NOTE). RECHECK 143/47. AXOX 3 AND ONE ASSIST TO BSC. NON PRODUCTIVE COUGH. RT IN AND REPORTS AIRVO DOWN TO 40 L FROM 50L. REPORTED GIRALDO X ONE AND TYLENOL GIVEN PER EMAR. VISTARIL 25 MG GIVEN FOR ANXIETY. AFEBRILE. PIV REMAINS INTACT. CALL LIGHT IN REACH. BED IN LOWEST POSITION. WILL CONTINUE TO MONITOR UNTIL DAY SHIFT NURSE ASSUMES CARE.
[2021-01-06 05:28] LABS: BASOPHILS ABSOLUTE AUTO 0.01 K/mm3 (0.00-0.23); BASOPHILS PERCENT AUTO 0 % (0-2); EOSINOPHILS PERCENT AUTO 0 % (0-6); Hematocrit 40.6 % (33.0-51.0); Hemoglobin 12.8 g/dL (11.5-16.0); IMMATURE GRAN ABSOLUTE AUTO 0.07 K/mm3 (0.00-0.10); IMMATURE GRAN PERCENT AUTO 1 % (0-1); LYMPHOCYTES PERCENT AUTO 5 % (21-46); MONOCYTES ABSOLUTE AUTO 0.08 K/mm3 (0.16-1.47); MONOCYTES PERCENT AUTO 1 % (4-13); Mean Corpuscular HGB 26.6 pg (26.0-34.0); Mean Corpuscular HGB Conc 31.5 g/dL (31.5-36.5); Mean Corpuscular Volume 84 fL (80-100); Mean Platelet Volume 10.7 fL (9.1-12.4); NEUTROPHILS ABSOLUTE AUTO 11.87 K/mm3 (1.96-9.15); NEUTROPHILS PERCENT AUTO 94 % (41-73); Platelet Count 415 K/mm3 (150-400); RDW Coefficient Variation 15.6 % (11.7-14.2); RDW Standard Deviation 48.2 fL (35.1-46.3); Red Blood Cell Count 4.81 M/mm3 (3.80-5.20); White Blood Cell Count 12.63 K/mm3 (4.00-11.30)
[2021-01-06 05:51] LABS: Anion Gap 10 mmol/L (6-16); Blood Urea Nitrogen 39 mg/dL (8-24); Bun/Creatinine Ratio 43.1 (12.0-20.0); CO2, Blood 23 mmol/L (21-32); Calcium, Blood 9.9 mg/dL (8.5-10.1); Chloride, Blood 101 mmol/L (98-108); Creatinine, Blood 0.91 mg/dL (0.40-1.00); Glomerular Filtration Rate >60 (60-); Glucose, Blood 384 mg/dL (70-99); Potassium, Blood 4.3 mmol/L (3.5-5.5); Sodium, Blood 134 mmol/L (136-145)
--- NOTE | 2021-01-06 10:00 | NUR ---
RT notified Patient desaturating after sitting in chair for breakfast. Reports anxious, sats down to 60's. Placed patient back into bed into R side lying position. Ativan 1mg IV given per EMAR. Airvo settings 40L and 92% FiO2. Sats maintaining high 60's to high 80's. RT Tory notified of situation. Tory will be up soon per state.
--- NOTE | 2021-01-06 12:30 | NUR ---
PHYSICIAN CONTACT RE BLOOD GLUCOSE BLOOD GLUCOSE FOR AM AND NOON WERE BOTH > 350. DR. STAHL NOTIFIED, RECEIVED ORDER TO GIVE ADDITIONAL 10 UNITS OF HUMALOG TO MAKE A TOTAL OF 25 UNITS FOR LUNCH. VERIFIED INSULIN WITH KIKO ALVES.
--- NOTE | 2021-01-06 18:16 | NUR ---
PT REMAINED ON BEDREST T/O DAY, FREQUENT DESATS INTO 80-70'S W/ ACTIVITY/TALKING. RT IN TO EVAL PT AND INCREASED AIRVO TO 45L AND FIO2@90%. NO OTHER ACUTE CHANGES T/O DAY.
[2021-01-07 05:24] LABS: BASOPHILS ABSOLUTE AUTO 0.01 K/mm3 (0.00-0.23); BASOPHILS PERCENT AUTO 0 % (0-2); EOSINOPHILS PERCENT AUTO 0 % (0-6); Hematocrit 40.6 % (33.0-51.0); Hemoglobin 12.9 g/dL (11.5-16.0); IMMATURE GRAN ABSOLUTE AUTO 0.05 K/mm3 (0.00-0.10); IMMATURE GRAN PERCENT AUTO 0 % (0-1); LYMPHOCYTES ABSOLUTE AUTO 0.55 K/mm3 (0.84-5.20); LYMPHOCYTES PERCENT AUTO 4 % (21-46); MONOCYTES ABSOLUTE AUTO 0.23 K/mm3 (0.16-1.47); MONOCYTES PERCENT AUTO 2 % (4-13); Mean Corpuscular HGB 26.9 pg (26.0-34.0); Mean Corpuscular HGB Conc 31.8 g/dL (31.5-36.5); Mean Corpuscular Volume 85 fL (80-100); Mean Platelet Volume 11.2 fL (9.1-12.4); NEUTROPHILS PERCENT AUTO 93 % (41-73); Platelet Count 399 K/mm3 (150-400); RDW Coefficient Variation 15.8 % (11.7-14.2); RDW Standard Deviation 48.4 fL (35.1-46.3); White Blood Cell Count 12.44 K/mm3 (4.00-11.30)
[2021-01-07 05:38] LABS: International Normalized Ratio 0.98; Prothrombin Time Results 10.6 Sec (9.7-11.5)
[2021-01-07 05:57] LABS: Bun/Creatinine Ratio 46.6 (12.0-20.0); C-REACTIVE PROTEIN, EXT RANGE 1.13 mg/dL (0.000-0.300); Calcium, Blood 9.8 mg/dL (8.5-10.1); Creatinine, Blood 0.97 mg/dL (0.40-1.00); Magnesium, Blood 1.7 mg/dL (1.6-2.4); Potassium, Blood 4.2 mmol/L (3.5-5.5)
--- NOTE | 2021-01-07 06:27 | NUR ---
SHIFT SUMMARY- ON ARIVO 45L @95% WITH PERSISTENT COUGH. SLEPT ON/OFF DURING THE NIGHT, NO APPARENT DISTRESS NOTED. PT. DESATS TO 70'S W/ACTIVITY. ENCOURAGED PRONE POSITION. WILL CONT TO MONITOR.
--- NOTE | 2021-01-07 17:13 | NUR ---
Shift Summary A/Ox3, pleasant and cooperative. Worked in the bed with PT. Sats maintained between 92-95% at rest Airvo 45L 95% FiO2. When patient sits in chair or starts talking on the phone, patient desats 70-80's. More alert today and not pulling off Airvo as she did yesterday. No other acute changes.
[2021-01-08 05:00] LABS: BASOPHILS ABSOLUTE AUTO 0.01 K/mm3 (0.00-0.23); BASOPHILS PERCENT AUTO 0 % (0-2); EOSINOPHILS PERCENT AUTO 0 % (0-6); Hematocrit 36.3 % (33.0-51.0); Hemoglobin 11.4 g/dL (11.5-16.0); IMMATURE GRAN ABSOLUTE AUTO 0.13 K/mm3 (0.00-0.10); IMMATURE GRAN PERCENT AUTO 1 % (0-1); LYMPHOCYTES ABSOLUTE AUTO 0.39 K/mm3 (0.84-5.20); LYMPHOCYTES PERCENT AUTO 3 % (21-46); MONOCYTES PERCENT AUTO 3 % (4-13); Mean Corpuscular HGB 26.8 pg (26.0-34.0); Mean Corpuscular HGB Conc 31.4 g/dL (31.5-36.5); Mean Corpuscular Volume 85 fL (80-100); Mean Platelet Volume 11.1 fL (9.1-12.4); NEUTROPHILS ABSOLUTE AUTO 11.01 K/mm3 (1.96-9.15); NEUTROPHILS PERCENT AUTO 93 % (41-73); Platelet Count 305 K/mm3 (150-400); Red Blood Cell Count 4.26 M/mm3 (3.80-5.20); White Blood Cell Count 11.84 K/mm3 (4.00-11.30)
[2021-01-08 05:14] LABS: International Normalized Ratio 0.98; Prothrombin Time Results 10.6 Sec (9.7-11.5)
[2021-01-08 05:30] LABS: C-REACTIVE PROTEIN, EXT RANGE 0.561 mg/dL (0.000-0.300); Calcium, Blood 9.1 mg/dL (8.5-10.1); Creatinine, Blood 0.98 mg/dL (0.40-1.00); Magnesium, Blood 1.8 mg/dL (1.6-2.4); Potassium, Blood 4.2 mmol/L (3.5-5.5)
--- NOTE | 2021-01-08 06:58 | NUR ---
SHIFT SUMMARY PT IS A 70 Y/O FEMALE, ADMITTED FOR ACUTE HYPOXEMIC RESPIRATORY FAILURE R/T COVID. CURRENTLY ON 45L @ 75% ON AIRVO, SATTING 90-92%, DYSPNEIC WITH EXERTION. VITAL SIGNS OTHERWISE STABLE. SHE WAS MEDICATED ONCE FOR ANXIETY WITH PRN HYDROXYZINE. NO C/O ACUTE PAIN OR NAUSEA. NO ACUTE CHANGES IN PT CONDITION NOTED DURING THE NIGHT. WILL CONTINUE TO MONITOR AND TREAT PER EMAR UNTIL HAND OFF TO DAY SHIFT RN.
--- NOTE | 2021-01-08 10:10 | NUR ---
PT TRANSFERRED FROM BED TO CHAIR FOR BREAKFAST. PRIOR TO THIS, O2 SAT WAS 90% ON AIRVO 45 L/75% O2. AFTER MOVEMENT, SATURATION DECREASED TO 64%, BREATHING SHALLOW, BUS ASSISTANT COUGH. ALLOWED PT TIME TO RECOVER, BUT O2 SAT NEVER WENT ABOVE 75%. CALLED Sheri ARCHER RT TO COME EVALUATE PATIENT. AIRVO SETTINGS CHANGED TO HIGHEST SETTING, YET O2 SAT NEVER RECOVERED ABOVE 82%. THIS AUTHOR REPORTED THIS TO DR. STAHL AT 0835, BIPAP ORDERED. PT ASSISTED TO PRONE POSITION IN BED, WHICH CAUSED SAT TO DROP TO 54% BRIEFLY. AT 0940, PLACED ON 100% O2 VIA BIPAP USING AIRVO CANNULA WITH O2 SAT 90-92%. LABS DRAWN. CALLED PT'S LAURA TO NOTIFY HIM OF PT'S STATUS AND REASON FOR TRANSFER. GAVE TELEPHONE REPORT TO Vivienne TIJERINA RN.
[2021-01-08 15:49] LABS: BASOPHILS ABSOLUTE AUTO 0.02 K/mm3 (0.00-0.23); BASOPHILS PERCENT AUTO 0 % (0-2); EOSINOPHILS PERCENT AUTO 0 % (0-6); Hematocrit 37.3 % (33.0-51.0); IMMATURE GRAN ABSOLUTE AUTO 0.13 K/mm3 (0.00-0.10); IMMATURE GRAN PERCENT AUTO 1 % (0-1); LYMPHOCYTES ABSOLUTE AUTO 0.47 K/mm3 (0.84-5.20); LYMPHOCYTES PERCENT AUTO 3 % (21-46); MONOCYTES ABSOLUTE AUTO 0.72 K/mm3 (0.16-1.47); MONOCYTES PERCENT AUTO 5 % (4-13); Mean Corpuscular HGB 27.1 pg (26.0-34.0); Mean Corpuscular HGB Conc 32.2 g/dL (31.5-36.5); Mean Corpuscular Volume 84 fL (80-100); Mean Platelet Volume 11.1 fL (9.1-12.4); NEUTROPHILS ABSOLUTE AUTO 14.33 K/mm3 (1.96-9.15); NEUTROPHILS PERCENT AUTO 92 % (41-73); Platelet Count 334 K/mm3 (150-400); RDW Standard Deviation 49.1 fL (35.1-46.3); Red Blood Cell Count 4.43 M/mm3 (3.80-5.20); White Blood Cell Count 15.67 K/mm3 (4.00-11.30)
[2021-01-08 16:10] LABS: Albumin, Blood 2.5 g/dL (3.4-5.0); Albumin/Globulin Ratio 0.6 (0.8-1.8); Bilirubin, Total 0.4 mg/dL (0.1-1.0); Bun/Creatinine Ratio 42.1 (12.0-20.0); Calcium, Blood 8.9 mg/dL (8.5-10.1); Globulin, Blood 4.4 g/dL (2.2-4.0); Potassium, Blood 4.1 mmol/L (3.5-5.5); Total Protein, Blood 6.9 g/dL (6.4-8.2)
--- NOTE | 2021-01-08 18:06 | NUR ---
PT WAS TRANSFERED FROM MEDICAL FLOOR THIS AFTERNOON WHEN SHE WAS UNABLE TO QUICKLY RECOVER HER SPO2 AFTER GETTING UP TO CHAIR. PT HAS BEEN ALERT AND ORIENTED BUT IS QUITE CONFUSED AT TIMES, PT CALLS STAFF IN ROOM FOR ATTENDS CHANGE THEN STS "NO I DIDN'T CALL YOU" THEN WILL ASK "DID I CALL AND SAY THAT?". PT'S ATTENDS CHANGED AT THE END OF THE SHIFT. PT CALLS STAFF IN THE ROOM TO ASK ABOUT NURSE TO PT RATIOS AND ATTEMPTS TO COLLECT STAFF'S LAST NAME AND WHERE THEY LIVE. PT DOES REMOVE HER AIRVO TWICE, PT IS THOROUGHLY EDUCATED THAT CONTINUING TO REMOVE THE AIRVO CAN RESULT IN HIGHER LEVELS OF RESPIRATORY SUPPORT, PT EXPRESSED UNDERSTANDING OF TEACHING AND STOPPED REMOVING ARIVO.
[2021-01-09 04:38] LABS: BASOPHILS ABSOLUTE AUTO 0.01 K/mm3 (0.00-0.23); BASOPHILS PERCENT AUTO 0 % (0-2); EOSINOPHILS PERCENT AUTO 0 % (0-6); Hematocrit 37.9 % (33.0-51.0); IMMATURE GRAN ABSOLUTE AUTO 0.14 K/mm3 (0.00-0.10); IMMATURE GRAN PERCENT AUTO 1 % (0-1); LYMPHOCYTES ABSOLUTE AUTO 0.38 K/mm3 (0.84-5.20); LYMPHOCYTES PERCENT AUTO 3 % (21-46); MONOCYTES ABSOLUTE AUTO 0.33 K/mm3 (0.16-1.47); MONOCYTES PERCENT AUTO 3 % (4-13); Mean Corpuscular HGB 26.8 pg (26.0-34.0); Mean Corpuscular HGB Conc 31.7 g/dL (31.5-36.5); Mean Corpuscular Volume 85 fL (80-100); Mean Platelet Volume 10.9 fL (9.1-12.4); NEUTROPHILS ABSOLUTE AUTO 11.46 K/mm3 (1.96-9.15); NEUTROPHILS PERCENT AUTO 93 % (41-73); Platelet Count 304 K/mm3 (150-400); RDW Coefficient Variation 15.9 % (11.7-14.2); RDW Standard Deviation 49.1 fL (35.1-46.3); Red Blood Cell Count 4.47 M/mm3 (3.80-5.20); White Blood Cell Count 12.32 K/mm3 (4.00-11.30)
[2021-01-09 04:53] LABS: Anion Gap 8 mmol/L (6-16); Blood Urea Nitrogen 40 mg/dL (8-24); Bun/Creatinine Ratio 45.4 (12.0-20.0); C-REACTIVE PROTEIN, EXT RANGE 0.442 mg/dL (0.000-0.300); CO2, Blood 23 mmol/L (21-32); Chloride, Blood 108 mmol/L (98-108); Creatinine, Blood 0.88 mg/dL (0.40-1.00); Glomerular Filtration Rate >60 (60-); Glucose, Blood 103 mg/dL (70-99); Magnesium, Blood 1.6 mg/dL (1.6-2.4); Potassium, Blood 3.9 mmol/L (3.5-5.5); Sodium, Blood 139 mmol/L (136-145)
[2021-01-09 05:13] LABS: International Normalized Ratio 0.99; Prothrombin Time Results 10.7 Sec (9.7-11.5)
--- NOTE | 2021-01-09 06:21 | NUR ---
SHIFT SUMMARY PATIENT A&OX4, FORGETFUL WITH GEN WEAKNESS. ON AIRVO 55L, 90%FIO2 SATING MID 90'S ALL SHIFT. DRY COUGH INFREQUENT. VSS. SR WITH A 1 DEGREE HB ON THE MONITOR. TOLERATING ADA DIET. INCONTINENT AT TIMES WITH CLEAN ATTENDS IN PLACE. TURNS SELF WELL IN BED. FALL PRECUATIONS IN PLACE PATIENT DOES NOT KNOW LIMITS.ATTENTION SEEKING BEHAVIOR AT TIMES BUT COMPLIANT WITH CARE. WILL CONTINUE TO MONITOR UNTIL REPORT GIVEN TO DAYSHIFT RN.
--- NOTE | 2021-01-09 13:56 | NUR ---
PT HAS BEEN SITTING UP IN BED MOST OF THE MORNING, PT NOW LYING ON L SIDE. PT VERBALIZES UNDERSTANDING OF THE IMPORTANCE OF CHANGING POSITIONS EVERY FEW HOURS. CALL LIGHT IN REACH.
--- NOTE | 2021-01-09 17:05 | NUR ---
PATIENT BLOOD PRESSURE ELEVEATED GREATER THAN 170 ON MULTIPLE READINGS, HYDRALAZINE GIVEN, FULL 20 MG OVER A 45- 50 MINUTE PERIOD, WHERE IN THE FIRST 25 MINUTES WAS THE FIRST 10 MG AND THE NEXT AMOUNT OF TIME GAVE ANOTHER 10MG, BLOOD PRESSURE LESS THAN 150 AND PATIENT ENDORSES SHE NO LONGER HAD A HEADACHE. WILL CONTINUE TO MONITOR NEEDED.
--- NOTE | 2021-01-09 18:48 | NUR ---
ROOM SERVICE BELLHOP REPORTED THE PATIENT FEELING NERVOUSNESS, KADY IN AND DID A SET OF VITALS, ADMINISTERED HER GABAPENTIN, AND REPOSITIONED THE PATIENT. VITALS HAD NOTHING TO NOTE, HYDRALAZINE STILL HOLD BP UNDER 150, BREATHING EXERCISES TAUGHT. TALK THERAPY. PATIENT MORE CALM WILL TELL PATIENTS NURSE TO THEN TELL ONCOMING SHIFT. RANJEET VARGAS RN HAD PHARMACY SEND DOWN VISTARIL.
--- NOTE | 2021-01-10 04:41 | NUR ---
SHIFT SUMMARY AAOX4/ANXIOUS AT TIMES. PT DENIES DISCOMFORT/NAUSEA T/O NIGHT. LUNG SOUND COARSE AND DIMINISHED T/O, HUMIDIFIED HIGH FLOW O2 DOWN TO 50L AT 80% FIO2 THIS AM, PT VERY EASILY SOB WITH MINIMAL EXERTION. CONTINUE TO ENCOURAGE PT TO TAKE SLOW DEEP BREATHS TOLERATED. INCONTINENT IN ATTENDS AT TIMES, CALLS SOMETIMES FOR BEDPAN USE. CONTINUE TO WEAN O2 SETTINGS TOLERATED. PT CURRENTY RESTING IN BED WITH CALL LIGHT IN REACH.
[2021-01-10 04:47] LABS: BASOPHILS ABSOLUTE AUTO 0.01 K/mm3 (0.00-0.23); BASOPHILS PERCENT AUTO 0 % (0-2); EOSINOPHILS PERCENT AUTO 0 % (0-6); Hemoglobin 11.8 g/dL (11.5-16.0); IMMATURE GRAN PERCENT AUTO 1 % (0-1); LYMPHOCYTES ABSOLUTE AUTO 0.53 K/mm3 (0.84-5.20); LYMPHOCYTES PERCENT AUTO 5 % (21-46); MONOCYTES ABSOLUTE AUTO 0.37 K/mm3 (0.16-1.47); MONOCYTES PERCENT AUTO 3 % (4-13); Mean Corpuscular HGB 26.9 pg (26.0-34.0); Mean Corpuscular HGB Conc 31.9 g/dL (31.5-36.5); Mean Corpuscular Volume 85 fL (80-100); NEUTROPHILS ABSOLUTE AUTO 10.23 K/mm3 (1.96-9.15); NEUTROPHILS PERCENT AUTO 91 % (41-73); Platelet Count 272 K/mm3 (150-400); RDW Coefficient Variation 16.1 % (11.7-14.2); RDW Standard Deviation 49.7 fL (35.1-46.3); Red Blood Cell Count 4.38 M/mm3 (3.80-5.20); White Blood Cell Count 11.24 K/mm3 (4.00-11.30)
[2021-01-10 05:00] LABS: Alanine Aminotransfer (ALT/SGP 38 U/L (12-78); Albumin, Blood 2.3 g/dL (3.4-5.0); Albumin/Globulin Ratio 0.5 (0.8-1.8); Alk Phos 71 U/L (50-136); Anion Gap 5 mmol/L (6-16); Aspartate Aminotrans (AST/SGOT 24 U/L (12-37); Bilirubin, Total 0.6 mg/dL (0.1-1.0); Blood Urea Nitrogen 31 mg/dL (8-24); Bun/Creatinine Ratio 41.1 (12.0-20.0); C-REACTIVE PROTEIN, EXT RANGE 0.379 mg/dL (0.000-0.300); CO2, Blood 26 mmol/L (21-32); Chloride, Blood 108 mmol/L (98-108); Creatinine, Blood 0.76 mg/dL (0.40-1.00); Globulin, Blood 4.2 g/dL (2.2-4.0); Glomerular Filtration Rate >60 (60-); Glucose, Blood 134 mg/dL (70-99); Potassium, Blood 4.1 mmol/L (3.5-5.5); Sodium, Blood 139 mmol/L (136-145); Total Protein, Blood 6.5 g/dL (6.4-8.2)
[2021-01-10 05:19] LABS: International Normalized Ratio 1.01; Prothrombin Time Results 10.9 Sec (9.7-11.5)
--- NOTE | 2021-01-10 11:51 | NUR ---
MORNING SUMMARY SAT PATIENT UP IN BED TO ATTEMPT BREAKFAST. BEGAN DESATTING INTO MID 80S. STOPPED PATIENT BREAKFAST. INCREASED PATIENT FIO2 TO 100%. STILL COULD NOT IMPROVE SATS. PATIENT STARTED TO GET ANXIOUS AND INCREASE RESP RATE. CALLED RT AND WE SWITCHED HER FROM AIRVO TO BIPAP. MEDICATED FOR ANXIETY WITH 0.5 MG ATIVAN. TURNED PATIENT ON HER LEFT SIDE FACING THE DOOR. SATS SLOWLY IMPROVED TO 92% ON BIPAP. AFTER ABOUT 1 HOUR PATIENT WAS CALLING OUT IN ROOM. APPEARED TO BE PANICKING AND FELT LIKE SHE COULD NOT CATCH HER BREATH. REENTERED ROOM WITH RT, READJUSTED BIPAP MASK, OPENED WINDOWS, AND ASSISTED PATIENT TO CHAIR. PATIENT CONTINUED TO BE ANXIOUS WITH RAPID RESP RATE. DR STAHL WAS CALLED. HE GAVE ORDER FOR MORE ATIVAN AND MORPHINE. IF THOSE DIDN'T WORK HE GAVE ORDER TO START IV PRECEDEX. ATIVAN AND MORPHINE GIVEN. PATIENT REMAINED ANXIOUS. DECISION WAS MADE BY DR STAHL TO MOVE PATIENT TO PCU 11 AND TO START PRECEDEX. PATIENT WAS TRANSPORTED TO PCU 11 AND REPORT GIVEN TO OLIVERIO BRADLEY RN.
--- NOTE | 2021-01-10 12:00 | NUR ---
PT WAS MOVED FROM ROOM 233 TO PCU 11. RECEIVED REPORT AT BEDSIDE AND STARTED PRECEDEX GTT PT IS ANXIOUS AND SPO2 IS IN THE 80'S. TOOK PT TO CT TO R/O PE. PT DID WELL WITH TRANSPORT AND IS TOLERATING THE BIPAP AFTER BEING ON PRECEDEX. NOW SPO2 IS IN THE 90'S ON FIO2 75%. WILL ALLOW PT TO REST ON BIPAP.
--- NOTE | 2021-01-10 18:32 | NUR ---
SUMMARY PT HAS BEEN BIPAP DEPENDENT MOST OF THE SHIFT. SHE GETS VERY ANXIOUS AT TIMES AND DESATS INTO THE 70'S. PRECEDEX GTT GOING AND ATIVAN PRN WHICH HELPS PT TOLERATE BIPAP. PLACED COOPER CATH THIS EVENING PT WAS UNABLE TO VOID AND HAD ABOUT 400ML IN BLADDER. FIO2 ON BIPAP WENT FROM 100% THIS AM TO NOW 50%. KEPT PT NPO DUE RESP STATUS.
[2021-01-10 19:02] LABS: Source, Urine Clean Catch
[2021-01-10 19:25] LABS: Appearance, Urine Clear (Clear); Bilirubin, Urine Neg (Neg); Blood, Urine Neg (Neg); Color, Urine Yellow (P-Yellow); Glucose Qualitative, Urine Neg (Neg); Ketones, Urine Neg (Neg); Leukocyte Esterase, Urine Neg (Neg); Nitrite, Urine Neg (Neg); Protein, Urine 2+ (Neg); Urobilinogen, Urine NORM (Normal)
[2021-01-10 19:40] LABS: Red Blood Cells, Urine 0-2 /hpf (0-2); White Blood Cells, Urine 0-2 /hpf (0-5)
[2021-01-10 19:41] LABS: Bacteria Few /hpf; Squamous Epithelial Cells Few /hpf (Few)
[2021-01-10 19:42] LABS: Transitional Epithelial Cells Few /hpf (0-Rare)
[2021-01-11 04:06] LABS: BASOPHILS ABSOLUTE AUTO 0.01 K/mm3 (0.00-0.23); BASOPHILS PERCENT AUTO 0 % (0-2); EOSINOPHILS PERCENT AUTO 0 % (0-6); Hematocrit 33.8 % (33.0-51.0); Hemoglobin 10.9 g/dL (11.5-16.0); IMMATURE GRAN ABSOLUTE AUTO 0.05 K/mm3 (0.00-0.10); IMMATURE GRAN PERCENT AUTO 0 % (0-1); LYMPHOCYTES ABSOLUTE AUTO 0.46 K/mm3 (0.84-5.20); LYMPHOCYTES PERCENT AUTO 4 % (21-46); MONOCYTES ABSOLUTE AUTO 0.22 K/mm3 (0.16-1.47); MONOCYTES PERCENT AUTO 2 % (4-13); Mean Corpuscular HGB 27.1 pg (26.0-34.0); Mean Corpuscular HGB Conc 32.2 g/dL (31.5-36.5); Mean Corpuscular Volume 84 fL (80-100); Mean Platelet Volume 11.3 fL (9.1-12.4); NEUTROPHILS ABSOLUTE AUTO 10.61 K/mm3 (1.96-9.15); NEUTROPHILS PERCENT AUTO 94 % (41-73); Platelet Count 212 K/mm3 (150-400); RDW Standard Deviation 49.4 fL (35.1-46.3); Red Blood Cell Count 4.02 M/mm3 (3.80-5.20); White Blood Cell Count 11.35 K/mm3 (4.00-11.30)
[2021-01-11 04:16] LABS: Alanine Aminotransfer (ALT/SGP 31 U/L (12-78); Albumin, Blood 2.2 g/dL (3.4-5.0); Albumin/Globulin Ratio 0.6 (0.8-1.8); Alk Phos 62 U/L (50-136); Anion Gap 5 mmol/L (6-16); Aspartate Aminotrans (AST/SGOT 24 U/L (12-37); Bilirubin, Total 0.6 mg/dL (0.1-1.0); Blood Urea Nitrogen 40 mg/dL (8-24); Bun/Creatinine Ratio 53.3 (12.0-20.0); C-REACTIVE PROTEIN, EXT RANGE 0.876 mg/dL (0.000-0.300); CO2, Blood 27 mmol/L (21-32); Calcium, Blood 8.6 mg/dL (8.5-10.1); Chloride, Blood 109 mmol/L (98-108); Creatinine, Blood 0.75 mg/dL (0.40-1.00); Globulin, Blood 3.6 g/dL (2.2-4.0); Glomerular Filtration Rate >60 (60-); Glucose, Blood 97 mg/dL (70-99); Magnesium, Blood 1.9 mg/dL (1.6-2.4); Phosphorus, Blood 4.2 mg/dL (2.5-4.9); Potassium, Blood 3.7 mmol/L (3.5-5.5); Sodium, Blood 141 mmol/L (136-145); Total Protein, Blood 5.8 g/dL (6.4-8.2)
[2021-01-11 04:20] LABS: Prothrombin Time Results 10.8 Sec (9.7-11.5)
--- NOTE | 2021-01-11 05:17 | NUR ---
SHIFT SUMMARY: PT REMAINS LETHARGIC, ABLE TO OPEN EYES TO VERBAL STIMULI, CAN FOLLOW SOME DIRECTIONS. PT HAS BEEN IN SR WITH HR IN THE 60'S, BP STABLE, HR IN THE 60'S. PRECEDEX HAS BEEN OFF FOR THE MAJORITY OF THE SHIFT. PT HAS BEEN COOPERATIVE WITH CARE. PT REMAINS ON BIPAP, NO CHANGES TO SETTINGS, SPO2 REMAINS ABOVE 90% RR BETWEEN 16-26. NO RESP DISTRESS NOTED. DIMINISHED T/O. COOPER PATENT, DRAINING TO GRAVITY. PT HAS BEEN REPOSITIONED Q2HRS, PT PROVIDES SOME ASSISTANCE. RED SACRUM NOTED, MEPILEX APPLIED. WILL CONTINUE TO MONITOR PT UNTIL REPORT IS GIVEN TO ONCOMING SHIFT.
--- NOTE | 2021-01-11 09:23 | NUR ---
IV IN LFA 20G. FLUSHES WELL. UNSURE OF INSERTION DATE.
--- NOTE | 2021-01-11 18:37 | NUR ---
SUMMARY PT ON BIPAP ALL DAY. GETS ANXIOUS WITHOUT PRECEDEX. WHEN PT IS ANXIOUS HER SPO2 DROPS TO THE 70'S EVEN WHEN FIO2 IS INCREASED TO 100%. FACE TURNS PURPLE AND SHE CANNOT CALM DOWN. WHILE ON PRECEDEX PT IS ABLE TO FOLLOW COMMANDS AND TURNS HERSELF IN BED WITHOUT DESATTING. DISCUSSED IVF WITH DR. STAHL THAT DID NOT WANT TO START MAINTENANCE FLUIDS YET. TITRATING FIO2 DOWN T/O THE DAY. NO SIGN OF DISTRESS AT THE MOMENT.
--- NOTE | 2021-01-12 02:55 | NUR ---
UPDATE: PT IS ALERT AND ORIENTEDX3, ABLE TO FOLLOW COMMANDS AND COMMUNICATE NEEDS. PT USES CALL LIGHT APPROPRIATLY. ABLE TO PERFORM A BED SIDE SWALLOW EVAL, NO SIGNS OF ASPIRATION NOTED. PT IS ON AIRVO WITH SETTINGS AT 60L 80% FIO2, SPO2 ABOVE 90% PT IS ANXIOUS, HOWEVER ABLE TO BE REASSURED WITH THERAPUTIC TOUCH. PRECEDEX OFF, ATIVAN GIVEN NEEDED. BED AT LOWEST LEVEL, CALL LIGHT WITHIN REACH
[2021-01-12 04:40] LABS: BASOPHILS ABSOLUTE AUTO 0.01 K/mm3 (0.00-0.23); BASOPHILS PERCENT AUTO 0 % (0-2); EOSINOPHILS PERCENT AUTO 0 % (0-6); Hematocrit 39.3 % (33.0-51.0); Hemoglobin 12.3 g/dL (11.5-16.0); IMMATURE GRAN ABSOLUTE AUTO 0.04 K/mm3 (0.00-0.10); IMMATURE GRAN PERCENT AUTO 0 % (0-1); LYMPHOCYTES ABSOLUTE AUTO 0.47 K/mm3 (0.84-5.20); LYMPHOCYTES PERCENT AUTO 4 % (21-46); MONOCYTES ABSOLUTE AUTO 0.29 K/mm3 (0.16-1.47); MONOCYTES PERCENT AUTO 3 % (4-13); Mean Corpuscular HGB 27.1 pg (26.0-34.0); Mean Corpuscular HGB Conc 31.3 g/dL (31.5-36.5); Mean Corpuscular Volume 87 fL (80-100); Mean Platelet Volume 11.5 fL (9.1-12.4); NEUTROPHILS PERCENT AUTO 92 % (41-73); Platelet Count 216 K/mm3 (150-400); RDW Standard Deviation 50.8 fL (35.1-46.3); Red Blood Cell Count 4.54 M/mm3 (3.80-5.20); White Blood Cell Count 10.61 K/mm3 (4.00-11.30)
[2021-01-12 04:56] LABS: International Normalized Ratio 1.01; Prothrombin Time Results 10.9 Sec (9.7-11.5)
[2021-01-12 05:03] LABS: Alanine Aminotransfer (ALT/SGP 37 U/L (12-78); Albumin, Blood 2.2 g/dL (3.4-5.0); Albumin/Globulin Ratio 0.6 (0.8-1.8); Alk Phos 65 U/L (50-136); Anion Gap 6 mmol/L (6-16); Aspartate Aminotrans (AST/SGOT 27 U/L (12-37); Bilirubin, Total 0.7 mg/dL (0.1-1.0); Blood Urea Nitrogen 47 mg/dL (8-24); Bun/Creatinine Ratio 57.1 (12.0-20.0); C-REACTIVE PROTEIN, EXT RANGE 0.627 mg/dL (0.000-0.300); CO2, Blood 26 mmol/L (21-32); Calcium, Blood 8.3 mg/dL (8.5-10.1); Chloride, Blood 110 mmol/L (98-108); Creatinine, Blood 0.82 mg/dL (0.40-1.00); Globulin, Blood 3.8 g/dL (2.2-4.0); Glomerular Filtration Rate >60 (60-); Glucose, Blood 145 mg/dL (70-99); Magnesium, Blood 2.1 mg/dL (1.6-2.4); Phosphorus, Blood 4.3 mg/dL (2.5-4.9); Potassium, Blood 3.9 mmol/L (3.5-5.5); Sodium, Blood 142 mmol/L (136-145); Troponin I <0.015 ng/mL (0.000-0.040)
--- NOTE | 2021-01-12 06:26 | NUR ---
SHIFT SUMMARY: SEE PREVIOUS NOTE. PT CONTINUES TO BE ON THE AIRVO, TITRATING FiO2 TO MAINTAIN SpO2 ABOVE 90% PT WILL DESATURATE WITH ACTIVITY, HOWEVER ABLE TO RECOVER QUICKLY. PT IS ALERT AND ORIENTED X3, ABLE TO COMMUNICATE NEEDS AND FOLLOWS COMMANDS. PT HAS BEEN IN SINUS THERON TO SR WITH HR BETWEEN 50-70'S. BP STABLE. BM THIS SHIFT, COOPER PATENT DRAINING VERONICA COLORED URINE. PRECEDEX OFF CURRENTLY, ATIVAN GIVEN PRN FOR ANXIETY.
--- NOTE | 2021-01-12 18:31 | NUR ---
SUMMARY PT REMAINED ON AIRVO ALL DAY. A/O TO PERSON AND PLACE. SOMETIMES GET FRUSTRATED FOR NO APPARENT REASON AND WILL TAKE AIRVO OFF. WHEN AIRVO IS OFF SPO2 IS IN THE 50'S. PLACED PT IN RESTRAINTS TO KEEP IT IN PLACE AND EDUCATED PT SEVERAL TIMES THAT SHE WILL WITHOUT OXYGEN ON. PT WAS ABLE TO EAT TODAY AND TOLERATED PO FLUIDS. OFF PRECEDEX ALL DAY. SHE TALKED TO S.O. ON THE PHONE. NO OTHER CHANGES THIS SHIFT. PT USES CALL LIGHT APPROPRIATELY FOR ASSISTANCE.
[2021-01-13 04:17] LABS: BASOPHILS ABSOLUTE AUTO 0.01 K/mm3 (0.00-0.23); BASOPHILS PERCENT AUTO 0 % (0-2); EOSINOPHILS ABSOLUTE AUTO 0.21 K/mm3 (0.00-0.68); EOSINOPHILS PERCENT AUTO 1 % (0-6); Hemoglobin 10.9 g/dL (11.5-16.0); IMMATURE GRAN ABSOLUTE AUTO 0.12 K/mm3 (0.00-0.10); IMMATURE GRAN PERCENT AUTO 1 % (0-1); LYMPHOCYTES ABSOLUTE AUTO 1.57 K/mm3 (0.84-5.20); LYMPHOCYTES PERCENT AUTO 11 % (21-46); MONOCYTES ABSOLUTE AUTO 0.72 K/mm3 (0.16-1.47); MONOCYTES PERCENT AUTO 5 % (4-13); Mean Corpuscular HGB 27.5 pg (26.0-34.0); Mean Corpuscular HGB Conc 32.1 g/dL (31.5-36.5); Mean Corpuscular Volume 86 fL (80-100); Mean Platelet Volume 10.6 fL (9.1-12.4); NEUTROPHILS ABSOLUTE AUTO 11.89 K/mm3 (1.96-9.15); NEUTROPHILS PERCENT AUTO 82 % (41-73); Platelet Count 191 K/mm3 (150-400); RDW Coefficient Variation 16.2 % (11.7-14.2); RDW Standard Deviation 50.4 fL (35.1-46.3); Red Blood Cell Count 3.97 M/mm3 (3.80-5.20); White Blood Cell Count 14.52 K/mm3 (4.00-11.30)
[2021-01-13 04:54] LABS: Albumin, Blood 2.2 g/dL (3.4-5.0); Anion Gap 5 mmol/L (6-16); Blood Urea Nitrogen 42 mg/dL (8-24); Bun/Creatinine Ratio 54.4 (12.0-20.0); CO2, Blood 27 mmol/L (21-32); Chloride, Blood 110 mmol/L (98-108); Creatinine, Blood 0.77 mg/dL (0.40-1.00); Glomerular Filtration Rate >60 (60-); Glucose, Blood 50 mg/dL (70-99); Phosphorus, Blood 2.8 mg/dL (2.5-4.9); Potassium, Blood 3.5 mmol/L (3.5-5.5); Sodium, Blood 142 mmol/L (136-145)
--- NOTE | 2021-01-13 05:22 | NUR ---
SHIFT SUMMARY: CALLED , REGARDING LOW CBG, ORDERS PLACED. PT CONTINUES TO BE ALERT AND ORIENTED TO SELF, FOLLOWING COMMANDS. PT IS CONFUSED AT TIMES, WILL REMOVE AIRVO AND YELL OUT FOR HELP, BILAT SWR IN PLACE. PT CONTINUES TO BE ON SAME AIRVO SETTINGS 60L, FiO2 AT 65% WITH SpO2 AT 90% RR BETWEEN 15-20. PT HAS BEEN IN SINUS RYTHYM WITH HR IN THE 70'S, BP STABLE. COOPER PATENT, DRAINING TO GRAVITY. WILL CONTINUE TO MONITOR PT UNTIL REPORT IS GIVEN TO ONCOMING SHIFT
--- NOTE | 2021-01-13 08:00 | NUR ---
ASSUMED PT CARE REPORT FROM TERRI HOOVER AT 0700, ASSUMED PT CARE. PT ALERT TO SELF AND PLACE, FOLLOWS SIMPLE DIRECTIONS. DENIES PAIN. PT MOVES ARMS SOME, LIMITED DUE TO BILAT SOFT WRIST RESTRAINTS. PT ON AIRVO 50L/50%, SATS 87-93%. SBP WNL, PT IN SR. DENIES CP. LUNG SOUNDS CLEAR TO UPPER, DIMINISHED TO BASES. COOPER DRAINING YELLOW URINE. SKIN OVERALL C/D/I. PT HAS 20G TO LEFT AC AND 20G TO LEFT FA, BOTH SITES WNL, DRESSINGS C/D/I. D5W INF AT 75ML/HR. PULSES STRONG. ABD SOFT, NONTENDER. SEE FULL SHIFT ASSESSMENT.
--- NOTE | 2021-01-13 18:51 | NUR ---
SHIFT SUMMARY PT REMAINS ALERT TO SELF AND PLACE (SOMETIMES FORGETS). PT FOLLOWS DIRECTIONS AND CALMS EASILY WHEN AGITATED/CONFUSED. PT UNABLE TO TAKE ANY PO MEDS OR DRINK WATER. PT OFTEN DROWSY. BEDSIDE SWALLOW EVAL COMPLETE (PT NEEDS SPEECH THERAPY CONSULT), DR ORTIZ AWARE. PRECEDEX DISCONTINUED, PRN ATIVAN WORKING WELL. BLOOD SUGARS STABLE TODAY. COVERAGE NEEDED ONCE. PT DENIES PAIN. SBP WNL. SR ON TELE. PT CONTINUES ON AIRVO 50L/50% (RESP AWARE OF NEED TO SPLIT O2 FOR ANY TITRATION UP). SKIN INTACT. ABD SOFT. COOPER DRAINING. 20G TO LEFT FA AND 20G TO LEFT AC, BOTH SITES WNL, DRESSINGS C/D/I. PT HAD SLIGHT BLOODY NOSE THAT HAS RESOLVED. WILL REPORT TO ONCOMING SHIFT.
--- NOTE | 2021-01-14 01:46 | NUR ---
ASSUMPTION OF CARE PT ALERT, ORIENTED TO SELF AND LOCATION, NOT ORIENTED TO SITUATION OR DATE. O2 SATURATIONS DECREASED, RT TO ROOM TO CHANGE AIRVO SETTINGS. THIS RN TO ROOM AFTER PT YELLING OUT FOR HELP, PT REPORTS SHE THINKS SHE BROKE A BONE AND SHE NEEDS A NEW ON PUT IN, PT STS SHE THINKS SHE BROKE HER CLAVICAL BUT IS UNABLE TO SAY HOW OR WHY SHE THINKS SHE BROKE, NO DEFORMITY NOTED AND BILAT CLAVICLES NON TENDER WITH PALPATION. PT CONTINUES TO CRY OUT FOR HELP, ASKING FOR THIS RN TO PLEASE ANSWER HER WHILE AT BEDSIDE, PT UNABLE TO ELABORATE ON WHAT SHE NEEDS ANSWERED/HELP WITH, MEDICATED WITH ATIVAN. ENCOURAGED PT TO REST, ADJUSTED HOB DESIRED BY PT. PT MEDICATED WITH HYDRALAZINE FOR HTN. COOPER IN PLACE.
[2021-01-14 04:25] LABS: BASOPHILS ABSOLUTE AUTO 0.01 K/mm3 (0.00-0.23); BASOPHILS PERCENT AUTO 0 % (0-2); EOSINOPHILS ABSOLUTE AUTO 0.07 K/mm3 (0.00-0.68); EOSINOPHILS PERCENT AUTO 1 % (0-6); Hematocrit 34.7 % (33.0-51.0); IMMATURE GRAN ABSOLUTE AUTO 0.14 K/mm3 (0.00-0.10); IMMATURE GRAN PERCENT AUTO 2 % (0-1); LYMPHOCYTES ABSOLUTE AUTO 0.87 K/mm3 (0.84-5.20); LYMPHOCYTES PERCENT AUTO 9 % (21-46); MONOCYTES ABSOLUTE AUTO 0.41 K/mm3 (0.16-1.47); MONOCYTES PERCENT AUTO 4 % (4-13); Mean Corpuscular HGB 27.1 pg (26.0-34.0); Mean Corpuscular HGB Conc 31.7 g/dL (31.5-36.5); Mean Corpuscular Volume 86 fL (80-100); Mean Platelet Volume 10.8 fL (9.1-12.4); NEUTROPHILS ABSOLUTE AUTO 8.07 K/mm3 (1.96-9.15); NEUTROPHILS PERCENT AUTO 84 % (41-73); Platelet Count 177 K/mm3 (150-400); RDW Coefficient Variation 16.1 % (11.7-14.2); RDW Standard Deviation 50.6 fL (35.1-46.3); Red Blood Cell Count 4.06 M/mm3 (3.80-5.20); White Blood Cell Count 9.57 K/mm3 (4.00-11.30)
[2021-01-14 04:44] LABS: Albumin, Blood 2.2 g/dL (3.4-5.0); Anion Gap 6 mmol/L (6-16); Blood Urea Nitrogen 25 mg/dL (8-24); Bun/Creatinine Ratio 36.8 (12.0-20.0); CO2, Blood 25 mmol/L (21-32); Calcium, Blood 8.7 mg/dL (8.5-10.1); Chloride, Blood 104 mmol/L (98-108); Creatinine, Blood 0.68 mg/dL (0.40-1.00); Glomerular Filtration Rate >60 (60-); Glucose, Blood 228 mg/dL (70-99); Phosphorus, Blood 2.1 mg/dL (2.5-4.9); Potassium, Blood 3.5 mmol/L (3.5-5.5); Sodium, Blood 135 mmol/L (136-145)
--- NOTE | 2021-01-14 07:30 | NUR ---
SHIFT SUMMARY PT REMAINS CONFUSED AND ANXIOUS THROUGHOUT NIGHT, PRN ATIVAN ADMINISTERED WITH LITTLE EFFECT, CALL PLACED TO DR DRIVER REGARDING PTS ANXIETY AND AGITATION, NEW ORDER FOR PRN ZYPREXA, ADMINISTERED, PT RESTED FOR APPROX 2 HOURS, THEN CONTINUES WITH AGITATION, YELLING OUT FROM BED, CAUSING BREIF O2 DESATURATIONS. HIGH FLOW SETTINGS UNCHANGED. HR WNL, BP STABLE AFTER 1 DOSE HYDRALAZINE ADMINISTERED. 1 BM THIS SHIFT, COOPER IN PLACE WITH GOOD OUTPUT. MINIMAL BLEEDING NOTED FROM VAGINAL AREA. CALL LIGHT WITHIN REACH HOWEVER PT DOES NOT USE. AM LAB RESULTS REPORTED TO DR DRIVER, NEW ORDER FOR 30mmol KPHOS.
--- NOTE | 2021-01-14 08:00 | NUR ---
ASSUMED PT CARE REPORT FROM REYNLOD HOOVER AT 0655, ASSUMED PT CARE. PT AGITATED AND PULLING AT RESTRAINTS/EQUIPMENT FIRST THING THIS SHIFT, EASILY CALMED. PRN MEDICATIONS GIVEN PER EMAR. PT ALERT TO PERSON AND PLACE, FOLLOWS DIRECTIONS. PARTICIPATES IN CARE. AWAITING SPEECH THERAPY EVAL, PT CURRENTLY NPO. LUNG SOUNDS CLEAR/DIMINISHED. SATS 88-100% ON AIRVO 60L/66%. SBP WNL, SR ON TELE. ABD SOFT, NONTENDER. COOPER DRAINING YELLOW URINE. VAG BLEEDING NOTED THIS AM, WILL NOTIFY PROVIDER. PLAN TO STOP ATIVAN, START PRECEDEX WHEN NEEDED, CHANGE PT TO ICU STATUS. SEE FULL SHIFT ASSESSMENT.
--- NOTE | 2021-01-14 18:55 | NUR ---
SHIFT SUMMARY PT CHANGED FROM PCU TO ICU STATUS AGAIN TODAY. STARTED ON PRECEDEX AND CLINIMIX. PT WORKED WELL WITH THERAPY AND WAS ABLE TO FOLLOW DIRECTIONS THROUGHOUT EXERCISES. PT FAILED SPEECH THERAPY CONSULT, WAS NOT ABLE TO SWALLOW WATER OR APPLESAUCE, TOOK FEW BITES OF PUDDING BUT INCONSISTENT WITH ABILITY TO SWALLOW. PT AIRVO TITRATED DOWN 60L/50%, SATS >92%. LUNG SOUNDS CLEAR/DIMINISHED. ABD SOFT AND NONTENDER. PULSES STRONG AND EQUAL. BILATERAL SOFT WRIST RESTRAINTS SECURE. MINIMAL VAG BLEEDING TODAY. WILL PASS ON TO MONITOR. COOPER DRAINING WELL. WILL REPORT TO ONCOMING SHIFT.
[2021-01-15 04:05] LABS: BASOPHILS ABSOLUTE AUTO 0.01 K/mm3 (0.00-0.23); BASOPHILS PERCENT AUTO 0 % (0-2); EOSINOPHILS ABSOLUTE AUTO 0.03 K/mm3 (0.00-0.68); EOSINOPHILS PERCENT AUTO 0 % (0-6); Hematocrit 32.3 % (33.0-51.0); Hemoglobin 10.3 g/dL (11.5-16.0); IMMATURE GRAN ABSOLUTE AUTO 0.05 K/mm3 (0.00-0.10); IMMATURE GRAN PERCENT AUTO 1 % (0-1); LYMPHOCYTES ABSOLUTE AUTO 0.62 K/mm3 (0.84-5.20); LYMPHOCYTES PERCENT AUTO 9 % (21-46); MONOCYTES PERCENT AUTO 4 % (4-13); Mean Corpuscular HGB 27.2 pg (26.0-34.0); Mean Corpuscular HGB Conc 31.9 g/dL (31.5-36.5); Mean Corpuscular Volume 85 fL (80-100); Mean Platelet Volume 10.9 fL (9.1-12.4); NEUTROPHILS ABSOLUTE AUTO 5.78 K/mm3 (1.96-9.15); NEUTROPHILS PERCENT AUTO 85 % (41-73); Platelet Count 165 K/mm3 (150-400); RDW Coefficient Variation 16.3 % (11.7-14.2); RDW Standard Deviation 50.4 fL (35.1-46.3); Red Blood Cell Count 3.78 M/mm3 (3.80-5.20); White Blood Cell Count 6.79 K/mm3 (4.00-11.30)
[2021-01-15 04:24] LABS: Anion Gap 5 mmol/L (6-16); Blood Urea Nitrogen 30 mg/dL (8-24); Bun/Creatinine Ratio 43.2 (12.0-20.0); CO2, Blood 26 mmol/L (21-32); Calcium, Blood 8.9 mg/dL (8.5-10.1); Chloride, Blood 108 mmol/L (98-108); Creatinine, Blood 0.69 mg/dL (0.40-1.00); Glomerular Filtration Rate >60 (60-); Glucose, Blood 195 mg/dL (70-99); Phosphorus, Blood 3.8 mg/dL (2.5-4.9); Sodium, Blood 139 mmol/L (136-145)
--- NOTE | 2021-01-15 07:24 | NUR ---
SHIFT SUMMARY PT RESTED WELL THROUGH OUT NIGHT, AROUSES TO VERBALI STIMULI, ORIENTED TO SELF, LOCATION AND FOLLOWS SOME DIRECTIONS, NOT ORIENTED TO SITUATION. PT SEDATED WITH PRECEDEX, ZYPREXA ADMINISTERED AND PRECEDEX TITRATED DOWN, SEE FLOWSHEET FOR TITRATIONS. PTS SUPPLEMENTAL OXYGEN NEEDS DECREASED THIS SHIFT, AIRVO @ 55L AND 45% WITH O2 SATURATIONS> 95%, RR WNL. MONITOR SHOWS SINUS RHYTHM WITH HR 40'S-50'S, WITH INCREASES TO 60'S WHILE AWAKE, BP STABLE. PT REMAINS CREDIT UNION FIELD EXAMINER, ORAL CARE PER SUCTION SWABS, IV NUTRITION WITH CLINIMIX. COOPER REMAINS IN PLACE WITH ADEQUATE OUTPUT. MINIMAL VAGINAL BLEEDING CONTINUES. PT REMAINS IN SOFT WRIST RESTRAINTS, PT CONTINUES TO REACH/PULL AT LINES WITH BREAKS FROM RESTRAINTS WHILE RN IS IN ROOM.
--- NOTE | 2021-01-15 18:16 | NUR ---
SHIFT SUMMARY: PT CONTINUES TO BE ALERT AND ORIENTED TO SELF, FOLLOWING COMMANDS. PT HAS BEEN OFF PRECEDEX SINCE 1200. PT TOLERATING WELL WITH ATIVAN PRN. PT IS ANXIOUS OF BEING ALONE, SHE NEEDS TO BE ROUNDED OFTEN TO EASE HER ANXIETY. PT RESPONDS WELL WITH THERAPUTIC COMMUNICATION. UNABLE TO GIVE HER P.O MEDS, FAILED SWALLOW EVALUATION TODAY. PT WAS PLACED ON 4L OF O2 VIA HIGH FLOW NASAL CANNULA, SpO2 MAINTAINED ABOVE 90% . HOWEVER, LATER THIS EVENING WITH REPOSITIONING PT REQURIED MORE OXYGEN. PT PLACED BACK ON AIRVO AT 50L FiO2 60% Sp02 REMAINING ABOVE 90% WILL GIVE BREAKS TOLERATED. PT HAS BEEN IN SR WITH HR IN THE 80'S WHEN NOT ON PRECEDEX. PT HAS HYPERTENSIVE THIS SHIFT, PRN MEDS GIVEN PER EMAR. PT REMAINS IN RESTRAINTS, SHE FORGETS NOT TO PULL ON LINES. COOPER REMAINS PATENT, DRAINING CLEAR YELLOW URINE. PT HAD A LARGE SOFT BM THIS SHIFT, SMALL RED STREAKS NOTED. WILL CONTINUE TO MONITOR PT UNTIL REPORT IS GIVEN TO ONCOMING SHIFT.
[2021-01-16 06:38] LABS: BASOPHILS ABSOLUTE AUTO 0.01 K/mm3 (0.00-0.23); BASOPHILS PERCENT AUTO 0 % (0-2); EOSINOPHILS ABSOLUTE AUTO 0.04 K/mm3 (0.00-0.68); EOSINOPHILS PERCENT AUTO 0 % (0-6); Hematocrit 33.6 % (33.0-51.0); Hemoglobin 10.7 g/dL (11.5-16.0); IMMATURE GRAN ABSOLUTE AUTO 0.12 K/mm3 (0.00-0.10); IMMATURE GRAN PERCENT AUTO 1 % (0-1); LYMPHOCYTES ABSOLUTE AUTO 1.04 K/mm3 (0.84-5.20); LYMPHOCYTES PERCENT AUTO 11 % (21-46); MONOCYTES ABSOLUTE AUTO 0.39 K/mm3 (0.16-1.47); MONOCYTES PERCENT AUTO 4 % (4-13); Mean Corpuscular HGB 27.1 pg (26.0-34.0); Mean Corpuscular HGB Conc 31.8 g/dL (31.5-36.5); Mean Corpuscular Volume 85 fL (80-100); Mean Platelet Volume 11.4 fL (9.1-12.4); NEUTROPHILS ABSOLUTE AUTO 7.63 K/mm3 (1.96-9.15); NEUTROPHILS PERCENT AUTO 83 % (41-73); Platelet Count 202 K/mm3 (150-400); RDW Coefficient Variation 16.4 % (11.7-14.2); RDW Standard Deviation 51.1 fL (35.1-46.3); Red Blood Cell Count 3.95 M/mm3 (3.80-5.20); White Blood Cell Count 9.23 K/mm3 (4.00-11.30)
--- NOTE | 2021-01-16 06:44 | NUR ---
SHIFT SUMMARY ANXIETY AND AGITATION AT BEGINNING OF SHIFT, PT PULLED RIGHT ARM OUT OF RESTRAINT AND ATTEMPTED TO GET OUT OF BED, YELLING OUT AND DIFFICULT TO REDIRECT, PRECEDEX RESTARTED, SEE FLOWSHEET FOR RATES AND TITRATIONS. NO OTHER EVENTS OVER NIGHT, PT RESTED SOME, ABLE TO ANSWERING ORIENTATION QUESTIONS NAME/, MONTH/DAY/YEAR, LOCATION, BUT MAKES ODD COMMENTS/QUESTIONS AT TIMES. PRECEDEX REMAINS INFUSING, PT CALM AND COOPERATIVE, UNDERSTANDS USE OF CALL LIGHT AND INSTRUCTED NOT TO GET OUT OF BED WITHOUT STAFF MEMBER PRESENT, BILAT WRIST RESTRAINTS REMOVED THIS AM. SUPPLEMENTAL O2 TITRATED TO 3L PER NC, ATTEMPTED RA PT DESATURATED AND MAINTAED SpO2 OF 85%. MONITOR SHOWS SINUS RHYTHM, HYPERTENSIVE AT TIMES. PT REMAINS NPO, FREQUENTLY ASKING FOR FOOD, DISCUSSED NPO STATUS WITH PT AND NEED FOR RE-EVAULATION FROM ST, PT ANXIOUS TO MEET WITH SPEECH THERAPIST TODAY. 1 BM THIS SHIFT, IV CLINIMIX FOR NUTRITION COOPER REMAINS IN PLACE WITH GOOD URINE OUTPUT. MEPILEX APPLIED TO COCCYX, REDDENED AREA BUT SKIN REMAINS INTACT. CALL LIGHT WITHIN REACH, PT INSTRUCTED ON USE WITH DEMONSTRATION.
[2021-01-16 06:56] LABS: Albumin, Blood 2.2 g/dL (3.4-5.0); Anion Gap 7 mmol/L (6-16); Blood Urea Nitrogen 31 mg/dL (8-24); Bun/Creatinine Ratio 42.6 (12.0-20.0); CO2, Blood 25 mmol/L (21-32); Calcium, Blood 9.1 mg/dL (8.5-10.1); Chloride, Blood 106 mmol/L (98-108); Creatinine, Blood 0.73 mg/dL (0.40-1.00); Glomerular Filtration Rate >60 (60-); Glucose, Blood 207 mg/dL (70-99); Phosphorus, Blood 2.9 mg/dL (2.5-4.9); Potassium, Blood 4.4 mmol/L (3.5-5.5); Sodium, Blood 138 mmol/L (136-145)
--- NOTE | 2021-01-16 09:55 | NUR ---
Assumed care of pt at 0700. Report received from Eliane HOOVER.
--- NOTE | 2021-01-16 11:49 | NUR ---
Precedex initially at 0.2 mcg/kg/hr. Pt easily awakened. Pleasant and cooperative with care. Follows directions. Pt requiring only 3 LPM NC to maintain SpO2 90% or greater. This RN stopped precedex after Dr Torres in to see patient today. Approx 1 hour later, pt very anxious. Required increased oxygen to 8 LPM NC. Verbal redirection provided, but not effective at deescalating anxiety. Precedex restarted at 0.4 mcg/kg/hr. Will continue to closely reassess.
--- NOTE | 2021-01-16 14:14 | NUR ---
Pt worked with physical therapy very briefly, worked on in bed activity and this caused SpO2 to drop to high 70s, low 80s, and pt did not recover. Oxygen increased to 15 LPM and pt recovered in about 5 minutes with SpO2 in low 90s. Precedex increased to 0.7 mcg/kg/hr. Around 1315, pt called this RN into room to help her find her spot in the book she is reading. Pt is much more calm and cooperative with care at this time. Precedex decreased to 0.4 mcg/kg/hr as pt was bradycardic. Also able to titrate O2 back down to 3 LPM NC and maintain SpO2 90% or greater.
--- NOTE | 2021-01-16 18:20 | NUR ---
SUMMARY At this time, pt is A&O x 3. Pleasant and cooperative with care. Receiving precedex at 0.4 mcg/kg/hr. Patient worked with physical therapy today, did not go well. Since then, pt has had extensive activity with in-bed repositoining to get on and off bedpan, linen changes, and pt has tolerated well. At this time, pt is on 1 LPM NC. SPO2 90% or greater. Lungs dim t/o. Dry, unproductive cough noted this shift. SR per monitor. Bed in lowest position. Call light in reach. Pt denies need at this time.
--- NOTE | 2021-01-16 21:24 | NUR ---
ASSUMPTION OF CARE PT AWAKE IN BED, ORIENTED TO SELF, LOCATION AND FOLLOWING COMMANDS. PT ANXIOUS MILD AGITATION, PRECEDEX GTT CONTINUES TO INFUSE, ZYPREXA ADMINISTERED. PT ON 1L PER NC, MONITOR SHOWS SINUS RHYTHM, BP STABLE. PT TOLERATING PO INTAKE, SUPERVISION WHILE EATING. COOPER IN PLACE. PT ABLE TO MAKE REPOSITIONS IN BED, ASSIST PROVIDED WHEN NEEDED. CALL LIGHT WITHIN REACH, PT USING APPROPRIATELY.
--- NOTE | 2021-01-16 22:00 | NUR ---
PT CONTINUES TO HAVE INCREASED ANXIETY, NOT WANTING TO BE ALONE IN THE ROOM, REPORTS BEING UNABLE TO SLEEP. CALL PLACED TO DR MCCARTNEY, NEW ONE TIME ORDER FOR ATARAX.
--- NOTE | 2021-01-16 22:45 | NUR ---
DR MCCARTNEY WAS NOTIFED THE PT'S BLOOD SUGAR WAS 405 AND BASED ON THE PARAMETER PT IS SUPPOSE TO GET 5 UNITS OF INSULIN REGULAR. MD NOTIFED PATIENT IS STILL GETTING CLINDIMIX. RN RECEIVED TELEPHONE ORDER FOR A ONE TIME DOES ORDER FOR 6 UNITS OF INSULING REGULAR AND TO RECHECK BLOOD SUGAR AT 0200.
[2021-01-17 04:12] LABS: BASOPHILS ABSOLUTE AUTO 0.01 K/mm3 (0.00-0.23); BASOPHILS PERCENT AUTO 0 % (0-2); EOSINOPHILS ABSOLUTE AUTO 0.02 K/mm3 (0.00-0.68); EOSINOPHILS PERCENT AUTO 0 % (0-6); Hemoglobin 10.4 g/dL (11.5-16.0); IMMATURE GRAN ABSOLUTE AUTO 0.09 K/mm3 (0.00-0.10); IMMATURE GRAN PERCENT AUTO 1 % (0-1); LYMPHOCYTES PERCENT AUTO 11 % (21-46); MONOCYTES PERCENT AUTO 4 % (4-13); Mean Corpuscular HGB 27.2 pg (26.0-34.0); Mean Corpuscular HGB Conc 31.5 g/dL (31.5-36.5); Mean Corpuscular Volume 86 fL (80-100); Mean Platelet Volume 11.9 fL (9.1-12.4); NEUTROPHILS ABSOLUTE AUTO 6.88 K/mm3 (1.96-9.15); NEUTROPHILS PERCENT AUTO 84 % (41-73); Platelet Count 186 K/mm3 (150-400); RDW Coefficient Variation 16.8 % (11.7-14.2); RDW Standard Deviation 51.8 fL (35.1-46.3); Red Blood Cell Count 3.82 M/mm3 (3.80-5.20)
[2021-01-17 04:30] LABS: Albumin, Blood 2.2 g/dL (3.4-5.0); Anion Gap 6 mmol/L (6-16); Blood Urea Nitrogen 36 mg/dL (8-24); Bun/Creatinine Ratio 39.4 (12.0-20.0); CO2, Blood 23 mmol/L (21-32); Calcium, Blood 9.6 mg/dL (8.5-10.1); Chloride, Blood 104 mmol/L (98-108); Creatinine, Blood 0.91 mg/dL (0.40-1.00); Glomerular Filtration Rate >60 (60-); Glucose, Blood 327 mg/dL (70-99); Phosphorus, Blood 3.9 mg/dL (2.5-4.9); Potassium, Blood 5.1 mmol/L (3.5-5.5); Sodium, Blood 133 mmol/L (136-145)
--- NOTE | 2021-01-17 06:21 | NUR ---
SHIFT SUMMARY PT SLEPT FOR APPROX 4 HOURS AFTER ATARAX ADMINISTRATION, PT ORIENTED TO SELF, LOCATION, MONTH/YEAR AND FOLLOWING DIRECTIONS. PT CONTINUES TO BE ANXIOUS, DOES NOT WANT TO BE ALONE, FREQUENTLY USING CALL LIGHT FOR ASSISTANCE WITH COMFORT AND NUTRITIONAL NEEDS. PRECEDEX CONTINUES TO INFUSE, PRN ZYPREXA ADMINISTERED. PT REMAINS ON 1L PER NC. MONITOR SHOWS SINUS RHYTHM, HTN AT TIMES, HYDRALAZINE ADMINISTERED. PT TOLERATING PO INTAKE, POC GLUCOSE HIGH THIS SHIFT, CALL PLACED TO DR MCCARTNEY, 0000 DOSE OF INSULIN CHANGED, CBG'S NOW TRENDING DOWN. PT WITH ONE LARGE BM THIS SHIFT, INCONTINENT OF STOOL. COOPER REMAINS IN PLACE. CALL LIGHT REMAINS WITHIN REACH.
--- NOTE | 2021-01-17 07:38 | NUR ---
Assumed care of pt, as ICU status, in room PCU 11 at 0700. Report received from Eliane HOOVER and Demarcus HOOVER.
--- NOTE | 2021-01-17 10:47 | NUR ---
Dr Torres in to see pt. Discussed precedex drip. Provider plans to review chart and place orders for PO anxiety meds so precedex drip can be titrated off.
--- NOTE | 2021-01-17 16:17 | NUR ---
Precedex drip stopped. Pt given zyprexa and cymbalta beforehand.
--- NOTE | 2021-01-17 18:40 | NUR ---
SUMMARY Pt A&O x 3. Answers questions. Follows commands. Verbalizes needs. Pleasant and cooperative with care. Precedex off for several hours. Anxiety controlled. Lungs dim t/o. Pt currently on 5 LPM NC. SpO2 90% or greater. Dry, nonproductive cough. Pt tolerating diet well. No BM this shift. SR per monitor. BP high, notified Dr Torres and lisinopril was started. Hyman catheter had good urine output. Bed in lowest position. Call light in reach. Pt denies need at this time.
--- NOTE | 2021-01-18 06:41 | NUR ---
SHIFT SUMMARY PT ALERT AND ORIENTED TO SELF, LOCATION, MONTH/YEAR, PT REPORTED NOT BEING ABLE TO SLEEP LAST NIGHT, NEW ORDER FOR ATARAX RECIEVED BUT PT CONTINUED TO REPORT NOT SLEEPING WELL LAST NIGHT. PT EXPRESSES ANXIETY AND MILD EMOTIONAL DISTRESS R/T HOSPITAL STAY AND FEELING ISOLATED. PT INTERESTED IN SPEAKING WITH HOSPITAL ASSOCIATE SOFTWARE DEVELOPMENT ENGINEER, SPIRITAL CARE CONSULT PLACED. PT ON 2L PER NC TO MAINTAIN O2 SATURATIONS> 90%. MONITOR SHOWS SINUS RHYTHM WITH HR 60'S-80'S, BP STABLE. PT TOLERATING PUREED DIET, HS CBG RESULT CALLED TO DR CHATTERJEE, ORDER FOR ADDITIONAL 2 UNITS INSULIN WITH HS SLIDING SCALE. NO BM THIS SHIFT. COOPER REMAINS IN PLACE.
--- NOTE | 2021-01-18 08:35 | NUR ---
Assumed care of pt at 0700. Report received from Eliane HOOVER. Pt is ICU status, currently in room PCU 11. Plan to ask hospitalist for status change as precedex has been off since previous day shift. Pt currently on 3 LPM NC.
--- NOTE | 2021-01-18 10:47 | NUR ---
Pt had low blood sugar this morning. Pt did not seem to be in any distress. Pt alert, not diaphoretic, VSS. Asked pt if she felt her blood sugar was low, and she stated "no". Pt given pudding, tolerated well. Provided pt with breakfast tray and she ate breakfast without any difficulty. Discussed with Dr Torres when she came in to see patient. Provider stated pt can be PCU status with potential to change to medical floor status later today.
--- NOTE | 2021-01-18 14:58 | NUR ---
Introduction: PT refered by Husam Kaiser MD. Assessment: PT presented seated upright in bed, pleasant demeanor. PT was grateful to be in a room with an abundance of sunlight. PT retold story of the of her son and related that she loves him very much. PT became short of breath while talking. Intervention: PT was offered a scripture reading. PT was offered prayer. Outcome: PT received scripture reading and Oxygen Saturation levels were good, during reading. PT accepted prayer. Follow-Up: As needed or requested.
--- NOTE | 2021-01-18 16:23 | NUR ---
Call placed to Dr Torres to discuss blood sugar result of 464. Plan to keep pt on low SS but will give an additional 5 units with this insulin dose. Recheck in 2 hours.
--- NOTE | 2021-01-18 17:05 | NUR ---
SUMMARY At this time, pt is medical floor status without telemetry. Pt A&O X 4. Answers questions. Follows commands. Verbalizes needs. Pleasant and cooperative with care. Appropriate with call light usage. Pt on 3 LPM NC. SpO2 90% or greater. Dry, nonproductive, occasional cough noted. Prior to telemetry removal, pt was sinus rhythm. BP stable. Hyman catheter in place, but plan to remove. Biggest struggle this shift is with blood sugar control. Bed in lowest position. Call light in reach. Pt denies need at this time.
--- NOTE | 2021-01-18 18:00 | NUR ---
PT ARRIVED TO ROOM 337 FROM PCU 11 VIA BED, TRANSFERRED TO NEW BED, ORIENTED TO ROOM AND CALL SYSTEM. BED IN LOWEST POSITION AND BED ALARM ARMED. CALL MONAE IN REACH. WILL MONITOR
--- NOTE | 2021-01-18 19:50 | NUR ---
ASSUMED CARE RECEIVED REPORT FROM KIKO TOSCANO. PT RESTING, IN NAD. NO ACUTE NEEDS ASSESSED AT THIS TIME. CBG 318. CALL LIGHT, POSSESSIONS IN REACH, BED IN LOW AND LOCKED POSITION WITH ALARMS ON. WCTM.
--- NOTE | 2021-01-19 04:00 | NUR ---
SHIFT SUMMARY PT RESTING, IN NAD. APPEARED TO SLEEP WELL OVERNIGHT. VS REVIEWED,WNL; O2 SATS STABLE ON 3L/NC. NO ACUTE CONCERNS TO REPORT OVERNIGHT. NO ACUTE NEEDS ASSESSED AT THIS TIME. CALL LIGHT, POSSESSIONS IN REACH, BED IN LOW AND LOCKED POSITION. WILL REPORT OFF TO ONCOMING RN.
--- NOTE | 2021-01-19 19:05 | NUR ---
ASSUMED CARE RECEIVED REPORT FROM KIKO TOSCANO. PT RESTING, IN NAD. NO ACUTE NEEDS ASSESSED AT THIS TIME. ANA.
--- NOTE | 2021-01-19 19:12 | NUR ---
NO ACUTE CHANGES NOTED THIS SHIFT, WILL CONTINUE TO MONITOR AND REPORT TO ONCOMING RN
[2021-01-20 05:20] LABS: BASOPHILS ABSOLUTE AUTO 0.01 K/mm3 (0.00-0.23); BASOPHILS PERCENT AUTO 0 % (0-2); EOSINOPHILS ABSOLUTE AUTO 0.05 K/mm3 (0.00-0.68); EOSINOPHILS PERCENT AUTO 1 % (0-6); Hematocrit 33.3 % (33.0-51.0); Hemoglobin 10.5 g/dL (11.5-16.0); IMMATURE GRAN ABSOLUTE AUTO 0.09 K/mm3 (0.00-0.10); IMMATURE GRAN PERCENT AUTO 1 % (0-1); LYMPHOCYTES ABSOLUTE AUTO 1.57 K/mm3 (0.84-5.20); LYMPHOCYTES PERCENT AUTO 15 % (21-46); MONOCYTES ABSOLUTE AUTO 0.49 K/mm3 (0.16-1.47); MONOCYTES PERCENT AUTO 5 % (4-13); Mean Corpuscular HGB 27.6 pg (26.0-34.0); Mean Corpuscular HGB Conc 31.5 g/dL (31.5-36.5); Mean Corpuscular Volume 87 fL (80-100); Mean Platelet Volume 10.5 fL (9.1-12.4); NEUTROPHILS ABSOLUTE AUTO 8.27 K/mm3 (1.96-9.15); NEUTROPHILS PERCENT AUTO 79 % (41-73); Platelet Count 162 K/mm3 (150-400); RDW Coefficient Variation 17.5 % (11.7-14.2); RDW Standard Deviation 55.7 fL (35.1-46.3); Red Blood Cell Count 3.81 M/mm3 (3.80-5.20); White Blood Cell Count 10.48 K/mm3 (4.00-11.30)
[2021-01-20 05:50] LABS: Albumin, Blood 2.2 g/dL (3.4-5.0); Anion Gap 4 mmol/L (6-16); Blood Urea Nitrogen 33 mg/dL (8-24); Bun/Creatinine Ratio 34.2 (12.0-20.0); CO2, Blood 26 mmol/L (21-32); Calcium, Blood 9.3 mg/dL (8.5-10.1); Chloride, Blood 106 mmol/L (98-108); Creatinine, Blood 0.97 mg/dL (0.40-1.00); Glomerular Filtration Rate 57 (60-); Glucose, Blood 152 mg/dL (70-99); Potassium, Blood 4.7 mmol/L (3.5-5.5); Sodium, Blood 136 mmol/L (136-145)
--- NOTE | 2021-01-20 06:35 | NUR ---
SHIFT SUMMARY PT ASLEEP, IN NAD. NO ACUTE CONCERNS TO REPORT OVERNIGHT. VS REVIEWED,WNL; O2 SATS STABLE ON 3L/NC; PT DENIES SOB. USES BEDPAN WITH ASSIST OF 1, TOLERATES WELL. SLEPT ON AND OFF T/O NIGHT. NO ACUTE NEEDS ASSESSED AT THIS TIME. CALL LIGHT, POSSESSIONS IN REACH, BED IN LOW AND LOCKED POSITION WITH ALARMS ON. WILL REPORT OFF TO ONCOMING RN.
--- NOTE | 2021-01-20 11:37 | NUR ---
PT PLEASANT COOP TODAY, AL/O. NO C/O PAIN. H/R REG, NO MURMER NOTED, NO TELE. LUNGS CLEAR T/O. SHALLOW RESP. EASY, UNLABORED. ON 3L 02. BED IN LOW POSITION, CALLLITE IN REACH, CALLS APPROP
[2021-01-20 14:11] LABS: SARS-Cov-2 (COVID-19) PCR, MMC POSITIVE (NEGATIVE)
--- NOTE | 2021-01-20 18:23 | NUR ---
PT QUITE PLEASNT TODAY. WAS EXPECTING TO D/C TO SNF TODAY, THIS HAS BEEN POSTPONED TO TOMORROW. CONTINUES TO BE ON 3L O2. NO NEW CONCERNS NOTED TODAY. BED IN LOW POSITION, CALL LITE IN REACH, CALLS APPROP
--- NOTE | 2021-01-21 04:47 | NUR ---
SHIFT SUMMARY PT IS A FULL CODE ADMITTED FOR COVID 19+. THE PLAN FOR THIS PT IS TO CONTINUE ANTIBIOTIC THERAPY AND DECREASE 02 DEMANDS. NO SIGNIFICANT CHANGES DURING THIS SHIFT. PT RESTING AT THIS TIME, NO DISTRESS NOTED. VS STABLE THIS TIME.
[2021-01-21] MEDS ORDERED: INSULANPEN SC (11:08)
--- NOTE | 2021-01-21 13:07 | NUR ---
PT PLEASANT TALKATIVE. DOES NOT KNOW DETAILS LIKE PRESIDENT. DENIES PAIN. DEFINATELY WEAK. TRIED 1 ASST TO BSC. BUT WAS ALMOST TOTAL ASST. VERY WEAK LEGS. H/R REG, NO MURMER NOTED. NO TELE. NO PACER NOTED. LUNGS CLEAR, BUT QUITE DIIM. RESP SHALLOW, ON 3L O2. BT X4 LAST BM STATED THIS AM. VOIDS BEDPAN. BED IN LOW POSITION, FRANCESCA LITE IN REACH BED ALARM ON FOR SAFETY EXPECTING D/C TODAY TO SNF FOR REHAB
--- NOTE | 2021-01-21 14:32 | NUR ---
DISCHARGE TO FACILITY. IV PULLED INTACT X2. NO TELE. PT WHEELED TO DOOR BY [facility]. 1430. CALLED PHILLY. THERESA HOOVER. REPORT
== END 2021-01-21 14:35 | DRG 177 ==
LOC: ER 14:26 → ERHOLD 16:06 → MEDS 16:06 → SURS 01-08 10:40 → PCU 01-10 11:26 → MEDS 01-18 17:58
PROVIDERS: Family Medicine; Internal Medicine; Student in an Organized Health Care Education/Training Program; ADMIT Internal Medicine
PROC: 3E0333Z Introduction of Anti-inflammatory into Peripheral Vein, Percutaneous Approach (ICD-10-PCS; principal; 2020-12-25)
PROC: XW033E5 Introduction of Remdesivir Anti-infective into Peripheral Vein, Percutaneous Approach, New Technology Group 5 (ICD-10-PCS; 2020-12-25)
PROC: 8E0ZXY6 Isolation (ICD-10-PCS; 2020-12-25)
PROC: 5A0955A Assistance with Respiratory Ventilation, Greater than 96 Consecutive Hours, High Flow/Velocity Cannula (ICD-10-PCS; 2020-12-25)
PROC: 5A09357 Assistance with Respiratory Ventilation, Less than 24 Consecutive Hours, Continuous Positive Airway Pressure (ICD-10-PCS; 2021-01-11)
DX: U07.1 COVID-19 (principal); A41.89 Other specified sepsis; J12.82 Pneumonia due to coronavirus disease 2019; G92 Toxic encephalopathy; J96.01 Acute respiratory failure with hypoxia; E87.2 Acidosis; E87.1 Hypo-osmolality and hyponatremia; E87.6 Hypokalemia; E03.9 Hypothyroidism, unspecified; E11.22 Type 2 diabetes mellitus with diabetic chronic kidney disease; Z88.2 Allergy status to sulfonamides; E83.42 Hypomagnesemia; Z88.0 Allergy status to penicillin; Z88.5 Allergy status to narcotic agent; N18.30 Chronic kidney disease, stage 3 unspecified; I12.9 Hypertensive chronic kidney disease with stage 1 through stage 4 chronic kidney disease, or unspecified chronic kidney disease; E78.5 Hyperlipidemia, unspecified; E11.42 Type 2 diabetes mellitus with diabetic polyneuropathy; F32.9 Major depressive disorder, single episode, unspecified; G25.81 Restless legs syndrome; E55.9 Vitamin D deficiency, unspecified; Z90.49 Acquired absence of other specified parts of digestive tract; Z98.51 Tubal ligation status; Z98.890 Other specified postprocedural states; Z79.899 Other long term (current) drug therapy; E66.9 Obesity, unspecified; E83.39 Other disorders of phosphorus metabolism; D64.9 Anemia, unspecified; D72.828 Other elevated white blood cell count; Z79.84 Long term (current) use of oral hypoglycemic drugs; Z79.82 Long term (current) use of aspirin; Z68.30 Body mass index [BMI] 30.0-30.9, adult; Z78.1 Physical restraint status; F41.9 Anxiety disorder, unspecified; T38.0X5A Adverse effect of glucocorticoids and synthetic analogues, initial encounter
CPT/HCPCS: 0097U; 36415; 51702; 71045; 71260; 80048; 80053; 80069; 81001; 82728; 82947; 83605; 83615; 83735; 83880; 84100; 84145; 84436; 84484; 85025; 85027; 85379; 85610; 85651; 86140; 87040; 92526; 92610; 93005; 93010; 94660; 94762; 96374; 97110; 97163; 97530; 99285-25; A9270; C9113; J0360; J0696; J1100; J1650; J1815; J2060; J2270; J2930; J3475; J7030; J7040; J7050; J7060; J7070; J7120; Q0177; Q9967; U0004

== ENCOUNTER → 2022-04-14 | Outpatient (CLI) | payer MEDICARE ==
[~2022-04-14] MED LIST changes: +EUTHYROX125 MCG PO; +GLUCOPHAGE1000 M1 PO; +INSULANPEN SC; +LEVEMIR100 UNIT/1 SC; +Neurontin 300300 MG PO; +OMEPRAZOLE MAGN20 MG PO; +PRAVASTATIN SOD40 MG PO; +Ropinirole HCl0.5 MG PO
== END | disposition home or self-care (01) ==
LOC: LAB SHORT 15:04
DX: C44.529 Squamous cell carcinoma of skin of other part of trunk (principal)
CPT/HCPCS: 88305

== ENCOUNTER 2022-04-20 15:00 | Inpatient (IN) | payer MEDICARE ==
[~2022-04-20] VITALS: Ht 160 cm; Wt 78.0 kg
[2022-04-20 15:56] LABS: BASOPHILS ABSOLUTE AUTO 0.06 K/mm3 (0.00-0.23); BASOPHILS PERCENT AUTO 1 % (0-2); EOSINOPHILS ABSOLUTE AUTO 0.03 K/mm3 (0.00-0.68); EOSINOPHILS PERCENT AUTO 0 % (0-6); Hematocrit 34.6 % (33.0-51.0); IMMATURE GRAN ABSOLUTE AUTO 0.02 K/mm3 (0.00-0.10); IMMATURE GRAN PERCENT AUTO 0 % (0-1); LYMPHOCYTES ABSOLUTE AUTO 0.82 K/mm3 (0.84-5.20); LYMPHOCYTES PERCENT AUTO 10 % (21-46); MONOCYTES ABSOLUTE AUTO 0.89 K/mm3 (0.16-1.47); MONOCYTES PERCENT AUTO 11 % (4-13); Mean Corpuscular HGB 26.5 pg (26.0-34.0); Mean Corpuscular HGB Conc 31.8 g/dL (31.5-36.5); Mean Corpuscular Volume 83 fL (80-100); Mean Platelet Volume 10.4 fL (9.1-12.4); NEUTROPHILS ABSOLUTE AUTO 6.62 K/mm3 (1.96-9.15); NEUTROPHILS PERCENT AUTO 79 % (41-73); Platelet Count 318 K/mm3 (150-400); RDW Coefficient Variation 16.7 % (11.7-14.2); RDW Standard Deviation 50.7 fL (35.1-46.3); Red Blood Cell Count 4.15 M/mm3 (3.80-5.20); White Blood Cell Count 8.44 K/mm3 (4.00-11.30)
[2022-04-20 16:07] LABS: Albumin, Blood 3.2 g/dL (3.4-5.0); Albumin/Globulin Ratio 0.8 (0.8-1.8); Bilirubin, Total 0.4 mg/dL (0.1-1.0); Bun/Creatinine Ratio 16.7 (12.0-20.0); Calcium, Blood 8.8 mg/dL (8.5-10.1); Creatinine, Blood 0.9 mg/dL (0.40-1.00); Globulin, Blood 3.9 g/dL (2.2-4.0); Potassium, Blood 3.8 mmol/L (3.5-5.5); Total Protein, Blood 7.1 g/dL (6.4-8.2)
[2022-04-20 16:22] LABS: Influenza B, PCR NEGATIVE (NEGATIVE); Resp Syncytial Virus, PCR NEGATIVE (NEGATIVE); SARS-Cov-2 (COVID-19) PCR, MMC NEGATIVE (NEGATIVE)
[2022-04-20 16:27] LABS: Influenza A, PCR POSITIVE (NEGATIVE)
[2022-04-20 18:08] LABS: Source, Urine Clean Catch
[2022-04-20 18:16] LABS: Appearance, Urine Clear (Clear); Bilirubin, Urine Neg (Neg); Blood, Urine 2+ (Neg); Color, Urine Yellow (P-Yellow); Glucose Qualitative, Urine Neg (Neg); Ketones, Urine Neg (Neg); Leukocyte Esterase, Urine Neg (Neg); Nitrite, Urine Neg (Neg); Protein, Urine 3+ (Neg); Specific Gravity, Urine 1.015 (1.003-1.022); Urobilinogen, Urine NORM (Normal)
[2022-04-20 18:28] LABS: Bacteria Few /hpf; Hyaline Casts 0-2 /lpf (0-2); Squamous Epithelial Cells Few /hpf (Few); White Blood Cells, Urine 0-2 /hpf (0-5)
--- NOTE | 2022-04-20 19:12 | NUR ---
TRANSFER NOTE: PT A&O X3, PLEASANT AND COOPERATIVE. PT ARRIVED 1630 VIA GURNEY BY IN TUBE CONVERSION TECHNICIAN. PT TRANSFERED BY SLIDE TRANSFER INTO BED. PT HAD NO COM[PLAINTS OF PAIN OR SOB. PT OREIENTATED TO THE ROOM AND CALL LIGHT. PT IN BED WITH CALL LIGHT WITHIN REACH.
--- NOTE | 2022-04-21 03:47 | NUR ---
SHIFT SUMMARY ADMITTED FOR AMS/RESPIRATORY FAILURE. FULL CODE. ISOLATION FOR FLU A+. TAMIFLU AND IV ANTIB RX ARE SCHEDULED. Q6 CBG'S, LOW SS. ADA DIET. CONTINUOUS PULSE OX IN PLACE. TYLENOL GIVEN FOR HEADACHE THIS SHIFT. 2.5 LPM O2 VIA NC, RA @ HOME. SHE IS CONFUSED AT TIMES THIS SHIFT. LOOSE BM'S THIS SHIFT. BED ALARM IS ACTIVE. SHE IS NORMALLY INDEPENDENT AT HOME, SHE IS UNSTEADY AND A MAX 2 PERSON ASSIST HERE.
[2022-04-21 05:35] LABS: BASOPHILS ABSOLUTE AUTO 0.05 K/mm3 (0.00-0.23); BASOPHILS PERCENT AUTO 1 % (0-2); EOSINOPHILS ABSOLUTE AUTO 0.16 K/mm3 (0.00-0.68); EOSINOPHILS PERCENT AUTO 2 % (0-6); Hematocrit 34.7 % (33.0-51.0); IMMATURE GRAN ABSOLUTE AUTO 0.01 K/mm3 (0.00-0.10); IMMATURE GRAN PERCENT AUTO 0 % (0-1); LYMPHOCYTES ABSOLUTE AUTO 1.53 K/mm3 (0.84-5.20); LYMPHOCYTES PERCENT AUTO 22 % (21-46); MONOCYTES ABSOLUTE AUTO 0.81 K/mm3 (0.16-1.47); MONOCYTES PERCENT AUTO 12 % (4-13); Mean Corpuscular HGB 26.7 pg (26.0-34.0); Mean Corpuscular HGB Conc 31.7 g/dL (31.5-36.5); Mean Corpuscular Volume 84 fL (80-100); Mean Platelet Volume 10.5 fL (9.1-12.4); NEUTROPHILS PERCENT AUTO 63 % (41-73); Platelet Count 304 K/mm3 (150-400); RDW Coefficient Variation 17.1 % (11.7-14.2); RDW Standard Deviation 52.1 fL (35.1-46.3); Red Blood Cell Count 4.12 M/mm3 (3.80-5.20); White Blood Cell Count 6.96 K/mm3 (4.00-11.30)
[2022-04-21 05:47] LABS: Bun/Creatinine Ratio 14.2 (12.0-20.0); Calcium, Blood 8.5 mg/dL (8.5-10.1); Creatinine, Blood 1.06 mg/dL (0.40-1.00); Potassium, Blood 3.6 mmol/L (3.5-5.5)
--- NOTE | 2022-04-21 18:42 | NUR ---
SHIFT ASSESSMENT NO ACUTE CHANGES DURING SHIFT. PT ALERT AND ORIENTED, CALLS APPROPRIATELY. PT DOWN TO 1L NC, SPO2 >92%. PENDING HOME O2 EVAL. PT ON DROPLET PRECATIONS FOR INFLUENZA. PLANS FOR POSSIBLE D/C TOMORROW. WILL CONTINUE TO MONITOR. CALL LIGHT IN REACH.
--- NOTE | 2022-04-22 08:24 | NUR ---
Rn summary: Patient is alert and oriented. Pt remains on 1 liter O2. Sats 94-96 %. Pt unable to sleep. Given melatonin 5mg, tylenol 650mg for amber arm discomfort, was resting best at 0600. Pt needs to get up out of bed today to assess strength . Calls appropriately.
[2022-04-22 10:22] LABS: Bun/Creatinine Ratio 14.5 (12.0-20.0); Calcium, Blood 8.3 mg/dL (8.5-10.1); Creatinine, Blood 1.79 mg/dL (0.40-1.00); Potassium, Blood 3.4 mmol/L (3.5-5.5)
--- NOTE | 2022-04-22 16:29 | NUR ---
PT IS AOX4 AND COOPERATIVE OF CARE. PT IS ON 1L RESTING IN BED. PT DENIEDS PAIN AND STATES SHE IS FEELING WEAK. PT WAS NAUSEATED X1 AND TREATED PER EMAR. PT 1 PERSON TO BEDSIDE COMODE. PT IS DOING WELL AND HAS CALL LIGHT WITHIN REACH. NO DISTRESS NOTED WILL CONTINUE TO MONITOR.
--- NOTE | 2022-04-23 04:32 | NUR ---
SHIFT SUMMARY: Pt A/Ox4 and call light appropriate. No changes this shift. She utilized 1L of O2 when in bed and 3L of O2 with activity to maintain oxygen saturations >92%. She denies any nausea, dizziness, or numbness/tingling. She was able to ambulate with 1 assist walker/belt. Saline locked IV. PT is hopeful to d/c today.
[2022-04-23 06:33] LABS: BASOPHILS ABSOLUTE AUTO 0.03 K/mm3 (0.00-0.23); BASOPHILS PERCENT AUTO 1 % (0-2); EOSINOPHILS ABSOLUTE AUTO 0.01 K/mm3 (0.00-0.68); EOSINOPHILS PERCENT AUTO 0 % (0-6); Hematocrit 31.9 % (33.0-51.0); Hemoglobin 9.9 g/dL (11.5-16.0); IMMATURE GRAN ABSOLUTE AUTO 0.01 K/mm3 (0.00-0.10); IMMATURE GRAN PERCENT AUTO 0 % (0-1); LYMPHOCYTES ABSOLUTE AUTO 1.88 K/mm3 (0.84-5.20); LYMPHOCYTES PERCENT AUTO 50 % (21-46); MONOCYTES ABSOLUTE AUTO 0.44 K/mm3 (0.16-1.47); MONOCYTES PERCENT AUTO 12 % (4-13); Mean Corpuscular HGB 26.5 pg (26.0-34.0); Mean Corpuscular Volume 85 fL (80-100); Mean Platelet Volume 10.5 fL (9.1-12.4); NEUTROPHILS ABSOLUTE AUTO 1.36 K/mm3 (1.96-9.15); NEUTROPHILS PERCENT AUTO 36 % (41-73); Platelet Count 243 K/mm3 (150-400); RDW Coefficient Variation 16.9 % (11.7-14.2); RDW Standard Deviation 52.8 fL (35.1-46.3); Red Blood Cell Count 3.74 M/mm3 (3.80-5.20); White Blood Cell Count 3.73 K/mm3 (4.00-11.30)
[2022-04-23 06:39] LABS: Albumin, Blood 2.5 g/dL (3.4-5.0); Anion Gap 7 mmol/L (6-16); Blood Urea Nitrogen 29 mg/dL (8-24); CO2, Blood 27 mmol/L (21-32); Calcium, Blood 7.7 mg/dL (8.5-10.1); Chloride, Blood 102 mmol/L (98-108); Creatinine, Blood 1.45 mg/dL (0.40-1.00); Glomerular Filtration Rate 38 (60-); Glucose, Blood 125 mg/dL (70-99); Potassium, Blood 3.7 mmol/L (3.5-5.5); Sodium, Blood 136 mmol/L (136-145)
--- NOTE | 2022-04-23 20:14 | NUR ---
END OF SHIFT SUMMARY: PATIENT DENIED PAIN OR DISCOMFORT THROUGHOUT THE DAY. DISCUSSED IMPORTANCE OF INCREASE FLUID INTAKE AND PROVIDED PATIENT WITH PREFERRED BEVERAGES. ENCOURAGED PATIENT TO DRINK EACH TIME IN THE ROOM. PATIENT FREQUENTLY RESPONDED WITH, "NOT RIGHT NOW" OR "NO THANK YOU". NO DYSPNEIC EVENTS NOTED TODAY. PATIENT STABLE ON 1L VIA NC. SPO2 REMAINED BETWEEN 94-97%. PATIENT TOLERATED STANDING TRANSFERS WITHOUT SHORTNESS OF BREATH. BREATHING WAS EVEN, UNLABORED AND REGULAR WHEN AT REST. PATIENT REPORTED THAT SHE IS BORED IN THE HOSPITAL AND WOULD LIKE TO GET BACK HOME SOON POSSIBLE. PATIENT ALSO REPORTED SOME ANXIETY ABOUT GOING HOME AND HER RISK FOR FALLS. PATIENT WORKED WITH PHYSICAL THERAPY.
--- NOTE | 2022-04-24 04:27 | NUR ---
SHIFT SUMMARY: Pt A/Ox4 and call light appropriate. Pt had c/o abdominal pain, espeically after consuming liquids. Dilaudid PRN given per eMar. She denied SOB, nausea, numbness/tingiling. She has been NPO tonight as she has a potential biopsy today- when day nurse relayed this to night nurse it was stated "they may not do it but never cancelled the order so just in case take away liquids." Pt was ok with this and stated "i dont have much of an appetite to drink anyways." Will relay this info on to coming nurse so the procedure can be confirmed. She has IVF. Ambulates to the BR with 1 assist. Bladder scan was done post void to ensure no retention- bladder scan result of 10mL.
--- NOTE | 2022-04-24 04:35 | NUR ---
SHIFT SUMMARY: Pt A/Ox4 and call light appropriate. She denies having pain, nausea, numbness/tingling. She notes having SOB upon exertion. While asleep in bed she utilized 1L O2 overnight. When ambulating she needs anywhere from 3-5L. No acute changes this shift otherwise. She is hopeful to d/c soon.
[2022-04-24 05:16] LABS: BASOPHILS ABSOLUTE AUTO 0.01 K/mm3 (0.00-0.23); BASOPHILS PERCENT AUTO 0 % (0-2); EOSINOPHILS ABSOLUTE AUTO 0.01 K/mm3 (0.00-0.68); EOSINOPHILS PERCENT AUTO 0 % (0-6); Hemoglobin 10.5 g/dL (11.5-16.0); IMMATURE GRAN ABSOLUTE AUTO 0.01 K/mm3 (0.00-0.10); IMMATURE GRAN PERCENT AUTO 0 % (0-1); LYMPHOCYTES ABSOLUTE AUTO 2.08 K/mm3 (0.84-5.20); LYMPHOCYTES PERCENT AUTO 48 % (21-46); MONOCYTES ABSOLUTE AUTO 0.43 K/mm3 (0.16-1.47); MONOCYTES PERCENT AUTO 10 % (4-13); Mean Corpuscular HGB 26.8 pg (26.0-34.0); Mean Corpuscular HGB Conc 31.8 g/dL (31.5-36.5); Mean Corpuscular Volume 84 fL (80-100); Mean Platelet Volume 10.2 fL (9.1-12.4); NEUTROPHILS PERCENT AUTO 42 % (41-73); Platelet Count 226 K/mm3 (150-400); RDW Coefficient Variation 16.8 % (11.7-14.2); Red Blood Cell Count 3.92 M/mm3 (3.80-5.20); White Blood Cell Count 4.34 K/mm3 (4.00-11.30)
[2022-04-24 05:52] LABS: Albumin, Blood 2.7 g/dL (3.4-5.0); Anion Gap 6 mmol/L (6-16); Blood Urea Nitrogen 20 mg/dL (8-24); Bun/Creatinine Ratio 17.2 (12.0-20.0); CO2, Blood 28 mmol/L (21-32); Calcium, Blood 7.7 mg/dL (8.5-10.1); Chloride, Blood 103 mmol/L (98-108); Creatinine, Blood 1.16 mg/dL (0.40-1.00); Glomerular Filtration Rate 49 (60-); Glucose, Blood 147 mg/dL (70-99); Phosphorus, Blood 2.5 mg/dL (2.5-4.9); Sodium, Blood 137 mmol/L (136-145)
--- NOTE | 2022-04-24 16:39 | NUR ---
SHIFT SUMMARY: PT A&O X4, PLEASANT AND COOPERATIVE. PT EVALUATED BY PT/OT, SBA WITH FWW AND GAIT BELT. PT HAD MILD COMPLAINTS OF PAIN RELATED TO HEADACHE. PT MEDICATED PER EMAR PROTOCOL FOR PAIN. DR. DAVID ORDERED A CT/PE SCAN TO BE COMPLETED. PT AMBULATED TO [facility] THROUGHOUT THE SHIFT. PT IN BED WITH CALL LIGHT WITHIN REACH.
--- NOTE | 2022-04-25 07:25 | NUR ---
SHIFT SUMMARY A&O X4. VSS. C/O HEADACHE 11/23. MANAGED WITH PRN TYLENOL. ASSIST X1 TO BATHROOM. SLEPT OFF AND ON BETWEEN CARE. BED ALARM ON. WILL CONTINUE TO MONITOR AND FOLLOW PLAN OF CARE.
--- NOTE | 2022-04-25 17:04 | NUR ---
DISCHARGE NOTE: PT A&O X4, PLEASANT, AND COOPERATIVE. PT IV REMOVED WITHOUT DIFFICULITY. PT HOME O2 DELIVERED TO HOSPITAL AND HOME. PT EDUCATED ON DIABETIC MANAGEMENT, MEDICATION, AND OXYGEN USE WITH STROAGE. PT ESCORTED BY [facility]OW[facility] VIA TO THE [facility] TO TRANSPORT PT HOME.
== END 2022-04-25 16:35 | disposition home or self-care (01) | DRG 871 ==
LOC: ER 15:00 → MEDS 15:01
PROVIDERS: Emergency Medicine; Internal Medicine; ADMIT Student in an Organized Health Care Education/Training Program
DX: A41.9 Sepsis, unspecified organism (principal); J10.01 Influenza due to other identified influenza virus with the same other identified influenza virus pneumonia; J96.01 Acute respiratory failure with hypoxia; F05 Delirium due to known physiological condition; N17.9 Acute kidney failure, unspecified; Z20.822 Contact with and (suspected) exposure to COVID-19; E11.40 Type 2 diabetes mellitus with diabetic neuropathy, unspecified; E03.9 Hypothyroidism, unspecified; F32.A Depression, unspecified; E55.9 Vitamin D deficiency, unspecified; G25.81 Restless legs syndrome; F41.9 Anxiety disorder, unspecified; I10 Essential (primary) hypertension; Z90.49 Acquired absence of other specified parts of digestive tract; Z98.890 Other specified postprocedural states; Z98.51 Tubal ligation status; Z88.0 Allergy status to penicillin; Z88.2 Allergy status to sulfonamides; Z88.6 Allergy status to analgesic agent; Z79.4 Long term (current) use of insulin; Z79.899 Other long term (current) drug therapy
CPT/HCPCS: 0241U; 36415; 71045; 71046; 71260; 80048; 80053; 80069; 81001; 82947; 83605; 83880; 84145; 85025; 87040; 93005; 93010; 94761; 94762; 96365; 96366; 96372; 96375; 97162; 97530; 99285-25; A9270; G0378; J1650; J1815; J1956; J2405; J7030; Q9967

== ENCOUNTER → 2022-11-03 | Outpatient (CLI) | payer MEDICARE ==
[2022-11-04 11:16] LABS: Stool Occult Bld Immuno 1 Negative (NEGATIVE)
== END ==
LOC: LAB 15:11 → LAB SHORT 15:11
PROVIDERS: Student in an Organized Health Care Education/Training Program
DX: R19.7 Diarrhea, unspecified (principal); R10.9 Unspecified abdominal pain
CPT/HCPCS: 82274

== ENCOUNTER 2023-07-01 14:13 | Emergency (ER) | payer MEDICARE ==
[~2023-07-01] VITALS: Ht 160 cm; Wt 81.7 kg
[2023-07-01 14:39] VITALS: BP 165/80
[2023-07-01] MEDS ORDERED: HYDR1TAB94 PO (16:09)
[2023-07-01] MEDS ORDERED: HYDROcodone 5-APAP 325 TAB PO ONE (16:10)
== END 2023-07-01 16:25 | disposition home or self-care (01) ==
LOC: ER 14:13
DX: S50.01XA Contusion of right elbow, initial encounter (principal); E11.9 Type 2 diabetes mellitus without complications; I10 Essential (primary) hypertension; Z79.84 Long term (current) use of oral hypoglycemic drugs; Z79.4 Long term (current) use of insulin; Z79.899 Other long term (current) drug therapy; Z88.0 Allergy status to penicillin; Z88.2 Allergy status to sulfonamides; Z88.5 Allergy status to narcotic agent; W06.XXXA Fall from bed, initial encounter
CPT/HCPCS: 73080; 99283-25

== ENCOUNTER 2023-07-07 07:56 | Emergency (ER) | payer MEDICARE ==
[~2023-07-07] VITALS: Ht 160 cm; Wt 81.7 kg
[~2023-07-07 07:56] MED LIST changes: +HYDR1TAB94 PO
[2023-07-07 08:47] LABS: Source, Urine Clean Catch
[2023-07-07 08:53] LABS: Appearance, Urine Clear (Clear); Bilirubin, Urine Neg (Neg); Blood, Urine 1+ (Neg); Color, Urine Yellow (P-Yellow); Glucose Qualitative, Urine Neg (Neg); Ketones, Urine Neg (Neg); Leukocyte Esterase, Urine Neg (Neg); Nitrite, Urine Neg (Neg); Protein, Urine 3+ (Neg); Specific Gravity, Urine 1.015 (1.003-1.022); Urobilinogen, Urine NORM (Normal)
[2023-07-07 09:00] LABS: Bacteria Rare /hpf; Squamous Epithelial Cells Rare /hpf (Few); White Blood Cells, Urine 0-2 /hpf (0-5)
[2023-07-07 09:13] LABS: BASOPHILS ABSOLUTE AUTO 0.07 K/mm3 (0.00-0.23); BASOPHILS PERCENT AUTO 1 % (0-2); EOSINOPHILS ABSOLUTE AUTO 0.05 K/mm3 (0.00-0.68); EOSINOPHILS PERCENT AUTO 1 % (0-6); Hematocrit 35.3 % (33.0-51.0); Hemoglobin 10.5 g/dL (11.5-16.0); IMMATURE GRAN ABSOLUTE AUTO 0.03 K/mm3 (0.00-0.10); IMMATURE GRAN PERCENT AUTO 0 % (0-1); LYMPHOCYTES ABSOLUTE AUTO 1.79 K/mm3 (0.84-5.20); LYMPHOCYTES PERCENT AUTO 16 % (21-46); MONOCYTES ABSOLUTE AUTO 0.32 K/mm3 (0.16-1.47); MONOCYTES PERCENT AUTO 3 % (4-13); Mean Corpuscular HGB 24.9 pg (26.0-34.0); Mean Corpuscular HGB Conc 29.7 g/dL (31.5-36.5); Mean Corpuscular Volume 84 fL (80-100); Mean Platelet Volume 10.3 fL (9.1-12.4); NEUTROPHILS ABSOLUTE AUTO 8.69 K/mm3 (1.96-9.15); NEUTROPHILS PERCENT AUTO 79 % (41-73); Platelet Count 505 K/mm3 (150-400); RDW Coefficient Variation 17.3 % (11.7-14.2); RDW Standard Deviation 52.3 fL (35.1-46.3); Red Blood Cell Count 4.22 M/mm3 (3.80-5.20); White Blood Cell Count 10.95 K/mm3 (4.00-11.30)
[2023-07-07 09:33] LABS: Albumin, Blood 3.1 g/dL (3.4-5.0); Albumin/Globulin Ratio 0.7 (0.8-1.8); Bilirubin, Total 0.4 mg/dL (0.1-1.0); Bun/Creatinine Ratio 28.1 (12.0-20.0); Calcium, Blood 9.1 mg/dL (8.5-10.1); Creatinine, Blood 1.14 mg/dL (0.40-1.00); Globulin, Blood 4.5 g/dL (2.2-4.0); Potassium, Blood 4.2 mmol/L (3.5-5.5); Total Protein, Blood 7.6 g/dL (6.4-8.2)
[2023-07-07 10:30] VITALS: BP 162/58
[2023-07-07] MEDS ORDERED: AZIT250 PO (10:56)
== END 2023-07-07 13:00 | disposition home or self-care (01) ==
LOC: ER 07:56
PROVIDERS: Emergency Medicine
DX: E11.649 Type 2 diabetes mellitus with hypoglycemia without coma (principal); D64.9 Anemia, unspecified; J18.9 Pneumonia, unspecified organism; R19.7 Diarrhea, unspecified; Z87.19 Personal history of other diseases of the digestive system; Z87.01 Personal history of pneumonia (recurrent); I10 Essential (primary) hypertension; Z79.84 Long term (current) use of oral hypoglycemic drugs
CPT/HCPCS: 71045; 80053; 81001; 82947; 85025; 99285-25

== ENCOUNTER 2025-03-09 19:57 | Observation (INO) | payer MEDICARE ==
[~2025-03-09] VITALS: Ht 160 cm; Wt 68.0 kg
[2025-03-09] MEDS ORDERED: Ondansetron HCl 2 MG / ML 2ML Vial IV ONE (20:15)
[2025-03-09 20:21] LABS: BASOPHILS ABSOLUTE AUTO 0.10 K/mm3 (0.00-0.23); BASOPHILS PERCENT AUTO 1 % (0-2); EOSINOPHILS ABSOLUTE AUTO 0.01 K/mm3 (0.00-0.68); EOSINOPHILS PERCENT AUTO 0 % (0-6); Hematocrit 35.5 % (33.0-51.0); Hemoglobin 11.3 g/dL (11.5-16.0); IMMATURE GRAN ABSOLUTE AUTO 0.05 K/mm3 (0.00-0.10); IMMATURE GRAN PERCENT AUTO 0 % (0-1); LYMPHOCYTES ABSOLUTE AUTO 0.94 K/mm3 (0.84-5.20); LYMPHOCYTES PERCENT AUTO 8 % (21-46); MONOCYTES ABSOLUTE AUTO 0.84 K/mm3 (0.16-1.47); MONOCYTES PERCENT AUTO 8 % (4-13); Mean Corpuscular HGB Conc 31.8 g/dL (31.5-36.5); Mean Corpuscular Volume 85 fL (80-100); NEUTROPHILS ABSOLUTE AUTO 9.19 K/mm3 (1.96-9.15); NEUTROPHILS PERCENT AUTO 83 % (41-73); NRBC ABSOLUTE 0.00 K/mm3 (0.00-0.02); NRBC Auto 0.0 /100 WBC (0.0-0.2); Platelet Count 340 K/mm3 (150-400); RDW Coefficient Variation 16.2 % (11.7-14.2); RDW Standard Deviation 50.8 fL (35.1-46.3)
[2025-03-09 21:25] LABS: Alanine Aminotransfer (ALT/SGP 16.0 U/L (12-78); Albumin, Blood 3.3 g/dL (3.4-5.0); Albumin/Globulin Ratio 0.7 (0.8-1.8); Anion Gap 15.0 mmol/L (3-11); Aspartate Aminotrans (AST/SGOT 30.0 U/L (12-37); Bilirubin, Total 0.7 mg/dL (0.1-1.0); Blood Urea Nitrogen 17.0 mg/dL (8-24); CO2, Blood 23.0 mmol/L (21-32); Calcium, Blood 8.7 mg/dL (8.5-10.1); Chloride, Blood 100.0 mmol/L (98-108); Creatinine, Blood 1.06 mg/dL (0.40-1.00); Globulin, Blood 4.6 g/dL (2.2-4.0); Glucose, Blood 90.0 mg/dL (70-99); Potassium, Blood 3.4 mmol/L (3.5-5.5); Sodium, Blood 135.0 mmol/L (136-145); Total Protein, Blood 7.9 g/dL (6.4-8.2)
[2025-03-09 22:35] LABS: Source, Urine Clean Catch
[2025-03-09 22:48] LABS: Bilirubin, Urine Neg (Neg); Glucose Qualitative, Urine 4+ (Neg); Ketones, Urine 1+ (Neg); Leukocyte Esterase, Urine Neg (Neg); Protein, Urine 3+ (Neg); Specific Gravity, Urine 1.010 (1.003-1.022); Urobilinogen, Urine NORM (Normal)
[2025-03-09 23:16] LABS: Color, Urine Yellow (P-Yellow)
[2025-03-09 23:17] LABS: Red Blood Cells, Urine 0-2 /hpf (0-2); White Blood Cells, Urine 0-2 /hpf (0-5); Yeast/Fungi Urine Few /hpf
[2025-03-10] MEDS ORDERED: FLU VACC TS2025-26(6MOS UP)/PF 45 MCG/0.5 ML SYRINGE IM SCH (00:25)
[2025-03-10 01:44] VITALS: BP 177/62
[2025-03-10] MEDS ORDERED: HydrALAZINE HCl 20 MG / ML 1ML Vial IV PRN (01:55)
[2025-03-10] MEDS ORDERED: D5W-1/2NS 1,000 ML IV ONE (02:00)
[2025-03-10] MEDS ORDERED: FARXIGA10 MG PO (02:05)
[2025-03-10] MEDS ORDERED: ASPIR 8181 M1 PO (02:06)
[2025-03-10] MEDS ORDERED: Vitamin D1000 UNI1 PO (02:07)
[2025-03-10] MEDS ORDERED: LORA.5 PO (02:07)
[2025-03-10 02:16] VITALS: BP 168/69
[2025-03-10 02:25] VITALS: BP 146/62
[2025-03-10 03:55] VITALS: BP 124/60
[2025-03-10 05:13] LABS: Hematocrit 32.3 % (33.0-51.0); Hemoglobin 10.0 g/dL (11.5-16.0); Mean Corpuscular HGB Conc 31.0 g/dL (31.5-36.5); Mean Corpuscular Volume 88 fL (80-100); NRBC ABSOLUTE 0.00 K/mm3 (0.00-0.02); NRBC Auto 0.0 /100 WBC (0.0-0.2); Platelet Count 293 K/mm3 (150-400); RDW Coefficient Variation 16.4 % (11.7-14.2); RDW Standard Deviation 52.5 fL (35.1-46.3)
[2025-03-10 06:08] LABS: Alanine Aminotransfer (ALT/SGP 13.0 U/L (12-78); Albumin, Blood 2.9 g/dL (3.4-5.0); Albumin/Globulin Ratio 0.7 (0.8-1.8); Anion Gap 7.0 mmol/L (3-11); Aspartate Aminotrans (AST/SGOT 30.0 U/L (12-37); Bilirubin, Total 0.6 mg/dL (0.1-1.0); Blood Urea Nitrogen 18.0 mg/dL (8-24); CO2, Blood 31.0 mmol/L (21-32); Calcium, Blood 8.3 mg/dL (8.5-10.1); Chloride, Blood 100.0 mmol/L (98-108); Creatinine, Blood 1.2 mg/dL (0.40-1.00); Globulin, Blood 4.0 g/dL (2.2-4.0); Glucose, Blood 71.0 mg/dL (70-99); Potassium, Blood 3.4 mmol/L (3.5-5.5); Sodium, Blood 135.0 mmol/L (136-145); Total Protein, Blood 6.9 g/dL (6.4-8.2)
--- NOTE | 2025-03-10 06:08 | NUR ---
PT ADMITTED DURING SHIFT. PATIENT ALERT AND ORIENTED X4 WITH INTERMITTENT FORGETFULNESS. PATIENT ABLE TO MAKE NEEDS KNOWN. PATIENT ON 2 L NC SATING >95%. D5 1/2 NS RUNNING AT 75 ML/H. PATIENT IS 1 ASSIST TO THE BSC DUE TO WEAKENESS. MED REC IS COMPLETED. TYLENOL GIVEN FOR HEADACHE. BED IN LOW POSITION WITH WHEELS LOCKED. BED ALARM ON, CALL LIGHT WITHIN REACH.
[2025-03-10 07:37] VITALS: BP 127/56
[2025-03-10] MEDS ORDERED: Enoxaparin 40 MG/0.4 ML SYR SC SCH (09:00)
[2025-03-10] MEDS ORDERED: VISBIOME 112.51 EACH PO (10:38)
[2025-03-10] MEDS ORDERED: MOXI400 PO (10:39)
--- NOTE | 2025-03-10 16:08 | NUR ---
DISCHARGE SUMMARY PATIENT DISCHARGED VIA [employer]. IV REMOVED WITHOUT COMPLICATION. DISCHARGE PACKET GIVEN AND REVIEWED, NO QUESTIONS ASKED. PATIENT APPEARED UNINTERESTED IN EDUCATION REGARDING DIABETES AND MEDICATIONS, PATIENT INTERUPTED EDUCATION SEVERAL TIMES WITH SUBJECT CHANGES AND VERBALIZED, "IT DOESN'T MATTER, MY PCP CHANGED MY INSULIN ALREADY, ILL BE FINE". REINFORCED THE IMPORTANCE OF GOOD BLOOD SUGAR MONITORING.
== END 2025-03-10 12:21 | disposition home or self-care (01) ==
LOC: ER 19:57 → ERHOLD 19:58 → MEDS 19:58 → ENPENDDIS 03-10 10:20 → MEDS 03-10 12:21
PROVIDERS: Physician Assistant; ADMIT Internal Medicine
DX: E11.649 Type 2 diabetes mellitus with hypoglycemia without coma (principal); I10 Essential (primary) hypertension; F41.9 Anxiety disorder, unspecified; E03.9 Hypothyroidism, unspecified; K21.9 Gastro-esophageal reflux disease without esophagitis; E11.40 Type 2 diabetes mellitus with diabetic neuropathy, unspecified; E87.6 Hypokalemia; E87.1 Hypo-osmolality and hyponatremia; Z99.81 Dependence on supplemental oxygen; Z79.82 Long term (current) use of aspirin; Z79.4 Long term (current) use of insulin; Z79.84 Long term (current) use of oral hypoglycemic drugs; Z79.890 Hormone replacement therapy; Z79.899 Other long term (current) drug therapy
CPT/HCPCS: 36415; 51701; 71046; 71260; 80053; 81001; 82947; 83605; 83880; 84145; 84484; 85025; 85027; 85379; 87040; 93005; 93010; 96374; 99285-25; A9270; J0360; J1650; J2405; J7042; Q9967